=== PATIENT | male | born 1930 | race Caucasian/White ===

== ENCOUNTER 2017-05-20 00:23 | Inpatient (IN) | payer MEDICARE, OTHER ==
[2017-05-20] VITALS (15 sets, daily range): BP systolic 132–182; BP diastolic 63–81; PULSE 64–94; RESP 18–24; TEMP 100; Ht 162.6 cm; Wt 110.0 kg
[~2017-05-20] VITALS: Ht 162.6 cm; Wt 110.0 kg
[~2017-05-20 00:23] MED LIST: ACET500T98; AMI10; ASPI-535; BACL10TA; CARV6.2545 PO; COL250; COLC0.6T6 PO; ESOM40CA; FERR140T2 PO; FLUO30CR; FURO40TA4; GLIM4TAB; HUM10VIA9; HYDR-1666 PO; HYDR-3011; IBUP100O10 PO; INDO75CA3 PO; METO25TA54; METO5TAB2 PO; NAPR220T30 PO; REPA2TAB6; TERA2CAP3; TRIA60LO; VALS1TAB65
--- NOTE | 2017-05-20 00:24 | ERA ---
ER Documentation Chief Complaint Date/Time DATE: 05/20/17 TIME: 00:24 Chief Complaint Altered level of consciousness HPI The patient is a 86-year-old male, presenting to the ER because of altered level of consciousness for 1 week, however it has been worse for the last 12 hours. He is quite confused according to family. This never happened to him previously. His history is not reliable. He denies blurred vision, headache, auditory, visual hallucination, neck pain, chest pain, abdominal pain, vomiting , dysuria, diarrhea. He does not smoke nor drink he walks with a walker Past medical history: Hypertension, diabetes mellitus, anemia, BPH, chronic kidney disease, gout, chronic left lower extremity weakness Past surgical history: Cholecystectomy ROS All systems reviewed and are negative except as per history of present illness. Medications Home Meds Reported Medications Indomethacin (Indomethacin) 75 Mg Capsule.sa, 25 MG PO 06/03/13 Colchicine* (Colcrys*) 0.6 Mg Tablet, 0.6 MG PO TID 06/03/13 Naproxen* (Naproxen*) 220 Mg Tablet, 500 MG PO 06/03/13 Hydrocodone Bit/Acetaminophen (Vicodin 5/500 Tablet) 1 Tab Tablet, 1 TAB PO DAILY 06/03/13 Ibuprofen (Ibuprofen) 100 Mg/5 Ml Oral.susp, 600 MG PO TID 06/03/13 Ferrous Sulfate* (Ferrous Sulfate*) 140 Mg Tablet.er, 325 MG PO DAILY 06/03/13 Metoclopramide Hcl (Reglan) 5 Mg Tab, 5 MG PO 06/03/13 Carvedilol (Coreg) 6.25 Mg Tablet, 3.125 PO DAILY 06/03/13 Amitriptyline Hcl* (Elavil*) 10 Mg Tab 03/21/11 Repaglinide* (Prandin*) 2 Mg Tablet 03/21/11 Aspirin Ec (Aspir 81) 81 Mg Tablet. 03/21/11 Docusate Sodium (Colace) 250 Mg Cap 03/21/11 Esomeprazole Mag Trihydrate (Nexium) 40 Mg Capsule. 03/21/11 Acetaminophen (Tylenol) 500 Mg Tab 03/21/11 Metoprolol Succinate (Toprol Xl) 25 Mg Tab.sr.24h 03/21/11 Furosemide (Lasix) 40 Mg Tab 03/21/11 Terazosin Hcl* (Terazosin Hcl*) 2 Mg Capsule 03/21/11 Valsartan-Hydrochlorothiazide (Diovan HCT) 1 Tab Tablet 03/21/11 Baclofen* (Baclofen*) 10 Mg Tablet 03/21/11 Hydroxyzine Hcl* (Hydroxyzine Hcl*) 25 Mg Tablet 03/21/11 Glimepiride* (Glimepiride*) 4 Mg Tablet 03/21/11 Fluocinonide (Fluocinonide) 30 Gm Cream.gm. 03/21/11 Hum Insulin Nph/Reg Insulin Hm (Novolin 70-30 100 Unit/Ml Vial) 100 Units/Ml Vial 03/21/11 Triamcinolone Acetonide (Triamcinolone Acetonide) 60 Ml Lotion 03/21/11 Allergies Allergies: Coded Allergies: No Known Drug Allergies (Verified Allergy, Mild, 10/15/13) PMhx/Soc History of Surgery: Yes (EGD, colonoscopy) Hx Neurological Disorder: No Hx Respiratory Disorders: No Hx Cardiac Disorders: Yes (HYPERTENSION) Hx Psychiatric Problems: No Hx Miscellaneous Medical Probl: Yes (anemia,gastric ulcer,Htn,DM,BPH,CKD, gout) Hx Alcohol Use: No (UNABLE TO OBTAIN FULL HISTORY PATIENT IS AAOX1) Hx Substance Use: No (UNABLE TO OBTAIN FULL HISTORY PATIENT IS AAOX1) Hx Tobacco Use: No (UNABLE TO OBTAIN FULL HISTORY PATIENT IS AAOX1) Physical Exam Vitals Vital Signs Date Time Temp Pulse Resp B/P Pulse Ox O2 Delivery O2 Flow Rate FiO2 05/20/17 00:49 97.8 67 19 177/73 97 Room Air 05/20/17 00:35 97.9 69 19 157/75 100 Physical Exam Const: No acute distress. Head: Atraumatic. Eyes: Normal Conjunctiva. ENT: Normal External Ears, Nose and Mouth. Neck: Full range of motion. No meningismus. Resp: Clear to auscultation bilaterally. Cardio: Regular rate and rhythm. Abd: Soft, obese, normal bowel sounds, non tender, distended urinary bladder. Skin: No petechiae or rashes. Back: No midline or flank tenderness. Ext: No cyanosis, or edema. Neur: Awake and alert. No focal deficit. Psych: Confused Result Diagram: 05/20/17 0045 05/20/17 0045 Results 24 hrs Laboratory Tests Test 05/20/17 00:45 05/20/17 00:48 05/20/17 00:57 05/20/17 01:35 White Blood Count 8.010^3/ul Red Blood Count 3.2810^6/ul Hemoglobin 9.8g/dl Hematocrit 30.1% Mean Corpuscular Volume 91.8fl Mean Corpuscular Hemoglobin 29.9pg Mean Corpuscular Hemoglobin Concent 32.6g/dl Red Cell Distribution Width 16.3% Platelet Count 78417^3/UL Mean Platelet Volume 12.9fl Neutrophils % 58.6% Lymphocytes % 25.7% Monocytes % 12.7% Eosinophils % 2.0% Basophils % 0.6% Nucleated Red Blood Cells % 0.0/100WBC Neutrophils # 4.710^3/ul Lymphocytes # 2.110^3/ul Monocytes # 1.010^3/ul Eosinophils # 0.210^3/ul Basophils # 0.110^3/ul Nucleated Red Blood Cells # 0.010^3/ul Prothrombin Time 15.7Sec Prothrombin Time Ratio 1.2 INR International Normalized Ratio 1.24 Activated Partial Thromboplast Time 32.6Sec Sodium Level 144mmol/L Potassium Level 4.2mmol/L Chloride Level 103mmol/L Carbon Dioxide Level 24mmol/L Anion Gap 21 Blood Urea Nitrogen 36mg/dl Creatinine 2.26mg/dl Glucose Level 279mg/dl Calcium Level 9.3mg/dl Total Bilirubin 0.5mg/dl Direct Bilirubin 0.00mg/dl Indirect Bilirubin 0.5mg/dl Aspartate Amino Transf (AST/SGOT) 48IU/L Alanine Aminotransferase (ALT/SGPT) 53IU/L Alkaline Phosphatase 121IU/L Troponin I 0.069ng/ml Total Protein 7.0g/dl Albumin 3.6g/dl Globulin 3.40g/dl Albumin/Globulin Ratio 1.05 Thyroid Stimulating Hormone (TSH) Pending Salicylates Level < 1.0mg/dl Acetaminophen Level < 10.0ug/ml Ethyl Alcohol Level < 10.0mg/dl Bedside Glucose 284mg/dL Urine Opiates Screen Positive Urine Barbiturates Negative Urine Amphetamines Screen Negative Urine Benzodiazepines Screen Negative Urine Cocaine Screen Negative Urine Cannabinoids Negative Bedside Urine pH (LAB) 6.0 Bedside Urine Protein (LAB) 1+ Bedside Urine Glucose (UA) 0.25% Bedside Urine Ketones (LAB) Negative Bedside Urine Blood Trace-lysed Bedside Urine Nitrite (LAB) Negative Bedside Urine Leukocyte Esterase (L Negative Procedures/MDM [place] [id number] Radiology Main Line: [phone] DIAGNOSTIC IMAGING REPORT Patient: BRONSON BLANCO : 1930 Age: 86 Sex: M MR #: [id number] DOS: 05/20/17 003 Ordering MD: RONNIE WILCOX MD Location: E/R Room/Bed: PROCEDURE: XR Chest. CLINICAL INDICATION: Altered level of consciousness. TECHNIQUE: Single frontal chest x-ray. COMPARISON: Of that. FINDINGS: Heart is enlarged.. There are atherosclerotic calcifications of the aortic knob. There is mild pulmonary vascular congestion. There is hypoventilation bibasilar atelectasis.. There is no pleural effusion. There is no pneumothorax. The osseous structures are unremarkable. IMPRESSION: Cardiomegaly. Mild pulmonary vascular congestion. Bibasilar atelectasis. RPTAT: HMVK .Ronnie Villalobos MD, MD Date Time Electronically viewed and signed by .Ronnie Villalobos MD, MD on 05/20/2017 01:28 .K/ CC: RONNIE WILCOX MD [place] [id number] Radiology Main Line: [phone] DIAGNOSTIC IMAGING REPORT Patient: BRONSON BLANCO : 1930 Age: 86 Sex: M MR #: [id number] DOS: 05/20/1734 Ordering MD: RONNIE WILCOX MD Location: E/R Room/Bed: PROCEDURE: Noncontrast CT Head. CLINICAL INDICATION: Pain. TECHNIQUE: Noncontrast CT of the head was obtained. The administered radiation dose was CTDI vol = 44 mGy, DLP = 810 mGy-cm. COMPARISON: No pertinent prior examinations were submitted for comparison. FINDINGS: The ventricles and cortical sulci are moderately enlarged. There is moderate decreased attenuation within the periventricular and subcortical white matter compatible with chronic microvascular changes. A small chronic infarct is noted in the region of the left insula. A small chronic right posterior frontal cortical infarct is noted. There is motion artifact which limits the exam. There is no acute intracranial hemorrhage or extra-axial fluid collection. There is no mass effect. No midline shift is identified. There is no loss of arthur-white differentiation to suggest acute infarction. The orbits are within normal limits. The paranasal sinuses are well aerated. No destructive osseous lesion is identified. IMPRESSION: No acute findings. Moderate diffuse parenchymal volume loss and chronic microvascular changes. 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 RPTAT: HIKT .Tom Forbes MD, MD Date Time Electronically viewed and signed by .Tom Forbes MD, MD on 05/20/2017 01:59 .T/ CC: RONNIE WILCOX MD EKG: Read by emergency physician Rate/Rhythm: Normal Sinus Rhythm 68 beats/min QRS, ST, T-waves: No ST elevation, no T inversion, LAD, LVH Impression: Abnormal EKG MEDICAL MAKING DECISION: The patient is a 86-year-old male, presenting with acute encephalopathy of unclear etiology, acute urinary retention. He was treated with Hillman catheter that went on about 800 mL of urine. The differential diagnoses considered include but are not limited to medication dementia, delirium, TIA, CVA, metabolic encephalopathy, septic encephalopathy, UTI, pyelonephritis Departure Diagnosis: Primary Impression: Acute encephalopathy Additional Impressions: Acute urinary retention Anemia Condition: Good Comments I discussed the findings with the patient. I discussed the patient with the on- call hospitalist Dr. Still who was made aware of the lab, the treatment, the patient condition. The patient is admitted to telemetry at 2:10 AM RONNIE WILCOX MD May 20, 2017 00:24
[2017-05-20 01:07] LABS: BASOPHIL # 0.1 10^3/ul (0.0-0.1); BASOPHILS % 0.6 % (0.0-2.0); EOSINOPHILS # 0.2 10^3/ul (0.0-0.5); HEMATOCRIT 30.1 % (42.0-52.0); HEMOGLOBIN 9.8 g/dl (14.0-18.0); LYMPHOCYTES # 2.1 10^3/ul (0.8-2.9); LYMPHOCYTES % 25.7 % (15.0-51.0); MEAN CORPUSCULAR HEMOGLOBIN 29.9 pg (29.0-33.0); MEAN CORPUSCULAR HGB CONC 32.6 g/dl (32.0-37.0); MEAN CORPUSCULAR VOLUME 91.8 fl (82.0-101.0); MEAN PLATELET VOLUME 12.9 fl (7.4-10.4); MONOCYTES % 12.7 % (0.0-11.0); NEUTROPHIL # 4.7 10^3/ul (1.6-7.5); NEUTROPHILS % 58.6 % (39.0-77.0); PLATELET COUNT 183 10^3/UL (140-415); RED BLOOD COUNT 3.28 10^6/ul (4.70-6.10); RED CELL DISTRIBUTION WIDTH 16.3 % (11.5-14.5)
[2017-05-20 01:24] LABS: INR 1.24; PROTIME 15.7 Sec (12.2-14.2); PT RATIO 1.2
[2017-05-20 01:25] LABS: PARTIAL THROMBOPLASTIN TIME 32.6 Sec (25.0-35.0)
[2017-05-20 01:29] LABS: URINE BLOOD (Dip) POC Trace-lysed (NEGATIVE)
--- NOTE | 2017-05-20 01:29 | RADRPT ---
PROCEDURE: XR Chest. CLINICAL INDICATION: Altered level of consciousness. TECHNIQUE: Single frontal chest x-ray. COMPARISON: Of that. FINDINGS: Heart is enlarged.. There are atherosclerotic calcifications of the aortic knob. There is mild pulm onary vascular congestion. There is hypoventilation bibasilar atelectasis.. There is no pleural eff usion. There is no pneumothorax. The osseous structures are unremarkable. IMPRESSION: Cardiomegaly. Mild pulmonary vascular congestion. Bibasilar atelectasis. RPTAT: HMVK .Yang Villalobos MD, Date Time Electronically viewed and signed by .Yang Villalobos MD, MD on 05/20/2017 01:28 .K/
[2017-05-20 01:32] LABS: ALANINE AMINOTRANSFERASE 53 IU/L (13-69); ALBUMIN 3.6 g/dl (3.3-4.9); ALBUMIN/GLOBULIN RATIO 1.05; ALKALINE PHOSPHATASE 121 IU/L (42-121); ANION GAP 21 (8-16); ASPARTATE AMINO TRANSFERASE 48 IU/L (15-46); BILIRUBIN,INDIRECT 0.5 mg/dl (0-1.1); BILIRUBIN,TOTAL 0.5 mg/dl (0.2-1.3); BLOOD UREA NITROGEN 36 mg/dl (7-20); CALCIUM 9.3 mg/dl (8.4-10.2); CARBON DIOXIDE 24 mmol/L (21-31); CHLORIDE 103 mmol/L (97-110); CREATININE 2.26 mg/dl (0.61-1.24); GLUCOSE 279 mg/dl (70-220); POTASSIUM 4.2 mmol/L (3.5-5.1); SODIUM 144 mmol/L (135-144)
[2017-05-20 01:36] LABS: ACETAMINOPHEN < 10.0 ug/ml (10.0-30.0)
[2017-05-20 01:37] LABS: BARBITURATES Negative (NEGATIVE); BENZODIAZEPINES Negative (NEGATIVE); CANNABINOIDS Negative (NEGATIVE); COCAINE Negative (NEGATIVE); OPIATES Positive (NEGATIVE)
[2017-05-20 01:37] LABS: ETHANOL < 10.0 mg/dl; SALICYLATE < 1.0 mg/dl (5.0-30.0)
[2017-05-20 01:43] LABS: TROPONIN-I 0.069 ng/ml (0.00-0.12)
--- NOTE | 2017-05-20 01:59 | RADRPT ---
PROCEDURE: Noncontrast CT Head. CLINICAL INDICATION: Pain. TECHNIQUE: Noncontrast CT of the head was obtained. The administered radiation dose was CTDI vol = 44 mGy, DLP = 810 mGy-cm. COMPARISON: No pertinent prior examinations were submitted for comparison. FINDINGS: The ventricles and cortical sulci are moderately enlarged. There is moderate decreased attenuation within the periventricular and subcortical white matter compatible with chronic microvascular change s. A small chronic infarct is noted in the region of the left insula. A small chronic right posterior frontal cortical infarct is noted. There is motion artifact which limits the exam. There is no acute intracranial hemorrhage or extra-axial fluid collection. There is no mass effect. No midline shift is identified. There is no loss of arthur-white differentiation to suggest acute infa rction. The orbits are within normal limits. The paranasal sinuses are well aerated. No destructive osseous lesion is identified. IMPRESSION: No acute findings. Moderate diffuse parenchymal volume loss and chronic microvascular changes. 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 RPTAT: HIKT .Tom Forbes MD, MD Date Time Electronically viewed and signed by .Tom Forbes MD, MD on 05/20/2017 01:59 .T/
[2017-05-20] MEDS ORDERED: NACL 0.9% 3 ML SYG IV SCH (05:00)
[2017-05-20] MEDS ORDERED: ONDANSETRON 4 MG INJ IV PRN (05:00)
[2017-05-20] MEDS ORDERED: ACETAMINOPHEN 650 MG SUPP PR PRN (05:00)
[2017-05-20] MEDS: SOD CHLORIDE 0.9% 1,000 ML IV SCH ×2 (05:03→21:17)
[2017-05-20] MEDS: PANTOPRAZOLE 40 MG INJ IV SCH (05:06)
[2017-05-20] MEDS: HEPARIN 5,000 UNIT/0.5 ML VIAL SC SCH ×3 (05:08→23:17)
[2017-05-20] MEDS ORDERED: SUCCINYLCHOLINE CHLORIDE 100 MG/5 ML SYG IV ONE (07:00)
[2017-05-20] MEDS ORDERED: ETOMIDATE 20 MG INJ ONE (07:00)
[2017-05-20] MEDS ORDERED: HALOPERIDOL 5 MG INJ IM ONE ×2 (07:00→21:00)
--- NOTE | 2017-05-20 08:30 | HP ---
Date/Time of Note Date/Time of Note DATE: 05/20/17 TIME: 08:13 Assessment/Plan VTE Prophylaxis VTE Prophylaxis Intervention: heparin Lines/Catheters Urinary Cath still in place: Yes Reason Cath still needed: urinary retention Assessment/Plan Chief Complaint/Hosp Course This is an 86-year-old male being admitted to telemetry floor for: #1 encephalopathy: Drug-induced versus infectious versus metabolic. At the current time patient's blood work does not elicit any signs of any infection at this time. Urine drug screen was positive for opioids. Urinalysis negative, however culture ordered. Chest x-ray did not show any signs of pneumonia. I will rasmussen-culture him. Patient will likely need soft restraints. I would like to try to avoid any sedating medications however if the patient does become more confused and tries to get out of bed he may need some as needed Ativan/ Haldol, however we will continue to assess the patient. I will hold his current home medication at this time as patient appears confused and at risk for possible aspiration. I will put him on as needed medications for hypertension and diabetes. #2 hypertension: We will hold on medication at this time, as needed hydralazine for blood pressure greater than 160 systolic. #3 diabetes mellitus: We will hold home medications, insulin sliding scale. #4 anemia: Likely of chronic disease secondary to #6. Will continue to follow #5 BPH -patient did have approximately 5-700 cc of urine that needed to be straight cath, urine however did not show any signs of infection. Need to monitor his bladder scans. #6 chronic kidney disease: Creatinine is 2.2 with the previous one approximately years ago was 1.4. Will continue IV fluid hydration at this time. Will consult nephrology. Nephrotoxic agents. #7 gout: We will check a uric acid level. Hold home medications. #8 DVT and GI prophylaxis: Heparin, Protonix Further treatment strategy will be implemented as per the clinical course Problems: HPI/ROS Admit Date/Time Admit Date/Time May 20, 2017 at 02:37 Hx of Present Illness Chief complaint: Confusion The following records were obtained from the ED physician as when I saw the patient he was confused and unable to provide history. The patient is a 86-year -old male, presenting to the ER because of altered level of consciousness for 1 week, however it has been worse for the last 12 hours. He is quite confused according to family. This never happened to him previously. His history is not reliable. He denies blurred vision, headache, auditory, visual hallucination, neck pain, chest pain, abdominal pain, vomiting, dysuria, diarrhea. He does not smoke nor drink he walks with a walker. Most of patient' s history was obtained from previous ED documentation is available on the EMR. Allergies: NKDA Medications: See MAR ROS Subjective hx not possible: pt non-verbal, pt critical status PMH/Family/Social Past Medical History Hypertension, diabetes mellitus, anemia, BPH, chronic kidney disease, gout, chronic left lower extremity weakness Past Surgical History Past surgical history: Cholecystectomy Family History Significant Family History: no pertinent family hx Social History Unable to obtain secondary to patient's confusion Exam/Review of Systems Vital Signs Vitals Vital Signs Date Time Temp Pulse Resp B/P Pulse Ox O2 Delivery O2 Flow Rate FiO2 05/20/17 06:36 100.0 83 24 165/73 97 Room Air 05/20/17 06:00 2.0 Intake and Output 05/19/17 05/19/17 05/20/17 15:00 23:00 07:00 Output Total 1400 ml Balance -1400 ml Exam Exam General: Patient appears confused, restless in bed HEENT: Atraumatic, normocephalic. The pupils are equal, round and reactive. Extraocular motor are intact Neck: Supple with full range of motion. No rigidity or meningismus Chest: Nontender Lungs: Clear to auscultation bilaterally no crackles rales or wheezing Heart: Normal S1-S2, Regular rhythm and rate. No overt murmurs appreciated Abdomen: Soft , nontender, nondistended , bowel sounds are present. No guarding no rebound tenderness Extremities: Normal to inspection, no edema no cyanosis Neurologic: Confused, awake. He does respond to his name however he is not able to verbalize coherently. Labs Result Diagram: 05/20/175 05/20/1744 Medications Medications Current Medications Sodium Chloride (NS) 1,000 ml @ 80 mls/hr [id number] IV Last administered on 05/20t 05:03; Admin Dose 80 MLS/HR; Start 05/20/17 at 04:36 Ondansetron HCl (Zofran Inj) 4 mg Q6H PRN IV NAUSEA AND/OR VOMITING; Start at 05:00 Acetaminophen (Tylenol Supp) 650 mg Q6H PRN [place] PAIN LEVEL 1-3 OR FEVER Last administered on 05/20/17 07:10; Admin Dose 650 MG; Start 05/20/17 at 05:00 Pantoprazole (Protonix Iv) 40 mg DAILY@06 IV Last administered on 05/20/17 05: 06; Admin Dose 40 MG; Start 05/20/17 at 06:00 Heparin Sodium (Porcine) (Heparin (5000 Units/0.5 ml)) 5,000 unit Q8 SC Last administered on 05/20/17 05:08; Admin Dose 5,000 UNIT; Start 05/20/17 at 06:00 FELIX MOISE May 20, 2017 08:26
[2017-05-20] MEDS: INSULIN ASPART [NOVOLOG] 3 ML PEN SC SCH ×4 (09:00→23:19)
[2017-05-20] MEDS ORDERED: GLUCOSE GEL 15 GRAM TUBE PO PRN ×2 (09:30)
[2017-05-20] MEDS ORDERED: DEXTROSE 50% 50 ML SYRINGE IV PRN ×2 (09:30)
[2017-05-20] MEDS ORDERED: GLUCOSE GEL 15 GRAM TUBE BUCCAL PRN (09:30)
[2017-05-20] MEDS ORDERED: GLUCAGON 1 MG INJ IM PRN (09:30)
[2017-05-20 11:50] LABS: ADD UMIC YES; UR ASCORBIC ACID NEGATIVE (NEGATIVE); UR BILIRUBIN (Dip) NEGATIVE (NEGATIVE); UR BLOOD (Dip) 3+ mg/dL (NEGATIVE); UR CLARITY SLIGHTLY CLOUDY (CLEAR); UR COLOR YELLOW (YELLOW); UR GLUCOSE (Dip) 3+ mg/dL (NEGATIVE); UR KETONES (Dip) NEGATIVE (NEGATIVE); UR LEUKOCYTE ESTERASE (Dip) 1+ Leu/ul (NEGATIVE); UR MUCUS FEW /HPF (NONE SEEN); UR NITRITE (Dip) NEGATIVE (NEGATIVE); UR RBC > 182 /HPF (0-5); UR SPECIFIC GRAVITY (Dip) 1.011 (1.003-1.030); UR TOTAL PROTEIN (Dip) 2+ mg/dl (NEGATIVE); UR UROBILINOGEN (Dip) NEGATIVE (NEGATIVE)
[2017-05-20] MEDS: hydrALAzine 20 MG INJ IV PRN ×2 (11:56→18:01)
[2017-05-20] MEDS ORDERED: HALOPERIDOL 5 MG INJ IV ONE ×2 (13:18→13:30)
--- NOTE | 2017-05-20 14:47 | RADRPT ---
PROCEDURE: Retroperitoneal ultrasound. CLINICAL INDICATION: Acute renal failure TECHNIQUE: Gustafson scale and color doppler ultrasound images of the retroperitoneum, kidneys, urinary bladder COMPARISON: Abdominal ultrasound 10/16/2013, CT abdomen 06/03/1930 FINDINGS: Right kidney 9.9 cm in length. Right renal cortical thickness is preserved. Left kidney 10.0 cm in length. Left renal cortical thickness is preserved. Echogenicity is upper limits of normal. No hydronephrosis. A few small echogenic foci are seen which may represent vascular calcifications, no definite renal c alculi are seen. 5.5 cm cyst again noted in the left kidney. Bladder: No focal lesions. IMPRESSION: Renal echogenicity upper limits of normal. No evidence of hydronephrosis. RPTAT: AADD .Boogie Ivey MD, Date Time Electronically viewed and signed by .Boogie Ivey MD, on 05/20/2017 14:47 .B/
[2017-05-20] MEDS ORDERED: ACETAMINOPHEN 325 MG TAB PO PRN (19:30)
[2017-05-20] MEDS ORDERED: hydrOXYzine HCL 25 MG TAB PO PRN (19:30)
[2017-05-20] MEDS ORDERED: METOCLOPRAMIDE 5 MG TAB PO PRN (19:30)
[2017-05-20] MEDS: AMITRIPTYLINE 10 MG TAB PO SCH (21:00)
[2017-05-20] MEDS: BACLOFEN 10 MG TAB PO SCH (21:00)
[2017-05-20] MEDS ORDERED: COLCHICINE 0.6 MG TAB PO SCH (21:00)
[2017-05-20] MEDS: IBUPROFEN 600 MG TAB PO SCH (21:00)
[2017-05-20] MEDS ORDERED: AMITRIPTYLINE 10 MG TAB PO SCH (21:00)
[2017-05-20] MEDS ORDERED: LORAZEPAM 2 MG INJ IV ONE (21:00)
[2017-05-21] VITALS (39 sets, daily range): BP systolic 81–162; BP diastolic 45–86; PULSE 63–102; RESP 12–32
[2017-05-21 00:13] LABS: AADO2 Arterial 51.4 mmHg (7.0-24.0); Allen Test ACCEPTAB; Arterial Base Excess -5.1 mmol/L (-3.0-3); Arterial COHb 0 % (0.0-3.0); Arterial Fraction of Oxyhgb 91.3 % (93.0-99.0); Arterial HCO3 17.9 mmol/L (22.0-26.0); Arterial MetHb 0.3 % (0.0-1.5); Arterial Total Hemglobin 11.1 g/dl (12.0-18.0); MODE ROOM AIR
[2017-05-21] MEDS: INSULIN ASPART [NOVOLOG] 3 ML PEN SC SCH ×11 (01:00→21:00)
[2017-05-21] MEDS: ACCU-CHEK XX SCH (02:00)
[2017-05-21 02:58] LABS: AADO2 Arterial 96.6 mmHg (7.0-24.0); Allen Test ACCEPTAB; Arterial Base Excess -6.2 mmol/L (-3.0-3); Arterial COHb 0.3 % (0.0-3.0); Arterial Fraction of Oxyhgb 92.4 % (93.0-99.0); Arterial HCO3 16.2 mmol/L (22.0-26.0); Arterial MetHb 0.3 % (0.0-1.5); Arterial Total Hemglobin 11.4 g/dl (12.0-18.0); MODE NASAL CANNULA
[2017-05-21] MEDS ORDERED: LORAZEPAM 2 MG INJ IV ONE (03:30)
[2017-05-21] MEDS ORDERED: HALOPERIDOL 5 MG INJ IM ONE (03:30)
[2017-05-21] MEDS ORDERED: LACTULOSE ENEMA 1,000 ML BTL PR SCH (04:00)
[2017-05-21 04:32] LABS: ABNORMAL IP MESSAGE 1; BASOPHIL # 0.1 10^3/ul (0.0-0.1); BASOPHILS % 0.6 % (0.0-2.0); EOSINOPHILS # 0.1 10^3/ul (0.0-0.5); EOSINOPHILS % 0.5 % (0.0-7.0); HEMATOCRIT 33.4 % (42.0-52.0); HEMOGLOBIN 10.5 g/dl (14.0-18.0); LYMPHOCYTES # 2.5 10^3/ul (0.8-2.9); LYMPHOCYTES % 18.4 % (15.0-51.0); MEAN CORPUSCULAR HEMOGLOBIN 29.7 pg (29.0-33.0); MEAN CORPUSCULAR HGB CONC 31.4 g/dl (32.0-37.0); MEAN CORPUSCULAR VOLUME 94.6 fl (82.0-101.0); MEAN PLATELET VOLUME 13.7 fl (7.4-10.4); MONOCYTE # 1.6 10^3/ul (0.3-0.9); MONOCYTES % 12.1 % (0.0-11.0); NEUTROPHIL # 9.1 10^3/ul (1.6-7.5); NEUTROPHILS % 67.7 % (39.0-77.0); PLATELET COUNT 187 10^3/UL (140-415); POSITIVE DIFF @See below; RED BLOOD COUNT 3.53 10^6/ul (4.70-6.10); RED CELL DISTRIBUTION WIDTH 17.1 % (11.5-14.5); WHITE BLOOD COUNT 13.5 10^3/ul (4.8-10.8)
[2017-05-21] MEDS: SOD CHLORIDE 0.9% 1,000 ML IV SCH ×2 (05:36→20:55)
[2017-05-21] MEDS ORDERED: morphine 4 MG/ML VIAL IV ONE (06:30)
[2017-05-21] MEDS ORDERED: SOD CHLORIDE 0.9% 1,000 ML IV ONE ×2 (06:30→08:43)
[2017-05-21] MEDS: HEPARIN 5,000 UNIT/0.5 ML VIAL SC SCH ×3 (06:43→21:43)
[2017-05-21] MEDS: PANTOPRAZOLE 40 MG INJ IV SCH (06:46)
[2017-05-21] MEDS ORDERED: CEFTRIAXONE 2 GM/50 ML (PMX) 50 ML IVPB SCH (07:00)
--- NOTE | 2017-05-21 07:01 | RADRPT ---
PROCEDURE: XR Chest. CLINICAL INDICATION: Shortness of breath TECHNIQUE: Portable single view of the chest COMPARISON: 10/19/2013 FINDINGS: Reduced lung volumes. Cardiomegaly and ectatic and calcified aorta. Pulmonary vascular congestion with interstitial edema. Possible early alveolar edema of the left lung base. Infectious infiltrat e cannot be excluded. No large effusion. IMPRESSION: Cardiomegaly and atherosclerotic aorta. Reduced lung volumes with probable at least moderate conges tive heart failure. Early left base infectious infiltrate cannot be excluded. RPTAT: HLBE Physician Emilie Date Time Electronically viewed and signed by Alley Godoy Physician on 05/21/2017 07:01 CAITY/
[2017-05-21 07:41] LABS: AADO2 Arterial 134.3 mmHg (7.0-24.0); Arterial Base Excess -6.3 mmol/L (-3.0-3); Arterial COHb 0.3 % (0.0-3.0); Arterial Fraction of Oxyhgb 89.4 % (93.0-99.0); Arterial HCO3 17.8 mmol/L (22.0-26.0); Arterial MetHb 0.3 % (0.0-1.5); MODE NASAL CANNULA
--- NOTE | 2017-05-21 07:56 | CONS ---
DATE OF ADMISSION: 05/20/2017 DATE OF CONSULTATION: 05/20/2017 NEPHROLOGY CONSULT REASON FOR CONSULT: Acute kidney injury, chronic kidney disease. REFERRING PHYSICIAN: Matty Still MD HISTORY OF PRESENT ILLNESS: This is an 86-year-old male with a past medical history of chronic kidney disease stage IIIB/4, with previous baseline creatinine is ranging from 1.5 to 2.3 mg/dL, a history of diabetes and hypertension, and BPH who presents to [facility] with altered mental status. The patient was brought into emergency room due to worsening stated by family. The patient upon arrival, denies any neck pain, chest pain, abdominal pain, dizzy, and no dysuria. In the emergency room the patient had a CT scan of the brain which showed no acute findings. The patient also noted to have a distended bladder. Had a Hillman catheter placed. In terms of the patient's renal history, the patient has a previous baseline creatinine of 1.5 to 2.3 mg/dL. The patient is taking diuretic therapy at home. There was no reports of any NSAID use. No reports of any hemoptysis, hematemesis, hematochezia, any rashes or frothy urine. PAST MEDICAL HISTORY: As stated above. 1. History of CKD. 2. History of diabetes. 3. History of hypertension. 4. History of anemia. 5. History of BPH. PAST SURGICAL HISTORY: Cholecystectomy. SOCIAL HISTORY: Does not drink, smoke, or do drugs. MEDICATION: Patient's medications have been reviewed. REVIEW OF SYSTEMS: Unable to do an adequate review of systems. This patient is altered. Pertinent positives stated in HPI, as obtained by reviewing medical records, speaking to hospital staff. PHYSICAL EXAMINATION: VITAL SIGNS: Blood pressure 166/74, respirations 20, pulse 75, temperature 98.2. HEENT: Head is normocephalic. Pupils are reactive to light. NECK: Supple. HEART: Regular rate. LUNGS: Diminished breath sounds at the base. ABDOMEN: Soft, nontender to palpation. No rebound or guarding. EXTREMITIES: Negative for clubbing, cyanosis, no edema. DERMATOLOGIC: No rashes. MUSCULOSKELETAL: No joint effusion. NEUROLOGIC: No change in exam. LABORATORY: Have been reviewed. ASSESSMENT AND PLAN: This is an 86-year-old male who presents with: 1. Nonoliguric acute kidney injury on top of chronic kidney disease stage IIIB/4, with previous baseline creatinine of 1.5 to 2.3 mg/dL. Etiology of current acute kidney injury may be secondary to hemodynamics. Questionable tubular injury. The patient's urinalysis shows evidence of pyuria and hematuria. This may be secondary to urinary tract infection in conjunction with Hillman trauma. The patient does have proteinuria approximately 2 creatinine. Plan at this point is to check a renal ultrasound to evaluate renal parenchyma and rule out obstruction. Will repeat urinalysis and urine electrolytes. Would recommend to continue gentle IV hydration. Continue treating underlying urinary tract infection. Otherwise continue supportive care, renally dose all meds. Avoid nephrotoxins. 2. History of chronic kidney injury, likely due to underlying diabetes and hypertension. The patient has currently in acute kidney injury as stated above. Continue medical management. 3. Anemia monitor H and H levels. 4. Mineral bone disorder. Will monitor calcium and phosphorus levels. 5. Acute encephalopathy. Etiology unclear if this is due to infectious versus toxic metabolic versus questionable cerebrovascular accident. The patient's initial CT scan was negative. Plan is to continue current medical management. Consider MRI. 6. Diabetes. Continue Accu-Chek and sliding scale. 7. Hypertension. Continue current blood pressure regimen. 8. Benign prostatic hypertrophy. Continue medical management. 9. Possible urinary tract infection. The patient's urinalysis shows underlying pyuria. Would recommend to consider antibiotic therapy. Thank you, Dr. Still, for this interesting consult. It will be a pleasure to follow the patient with you throughout the hospital course. Dictated By: Jl Pizano DO /vincent/froy /Document#: [id number]
--- NOTE | 2017-05-21 08:50 | EN ---
Date/Time of Note Date/Time of Note DATE: 05/21/17 TIME: 08:47 ER Progress Note This 86-year-old male admitted for presumed sepsis is in the ICU. I was called to intubate the patient due to respiratory difficulty and decreasing oxygen saturations of 92%. On arrival the patient is using accessory muscles of breathing is altered mental status. Oxygen saturations are 92-100% Endotracheal Intubation by me: Pre assessment performed. See preceding note for details. Pre-oxygenation performed with 100% oxygen RSI: Performed w/o complication or hypoxic events. Medications as ordered. Blade: [Mac 4] ET Tube: 7.5] cm Depth: 23] cm at the lip Intubation confirmed by colorimetric CO2, equal breath sounds, quiet over the stomach. SCOOTER SOLORZANO DO May 21, 2017 08:50
[2017-05-21] MEDS ORDERED: PROPOFOL 100 ML ONE (08:59)
[2017-05-21] MEDS: FERROUS SULFATE (SR) 142 MG TAB PO SCH (09:00)
[2017-05-21] MEDS: BACLOFEN 10 MG TAB PO SCH ×3 (09:00→21:00)
[2017-05-21] MEDS: ASPIRIN (EC) 81 MG TAB PO SCH (09:00)
[2017-05-21] MEDS ORDERED: FUROSEMIDE 40 MG TAB PO SCH (09:00)
[2017-05-21] MEDS: DOCUSATE SODIUM 250 MG CAP PO SCH (09:00)
[2017-05-21] MEDS: IBUPROFEN 600 MG TAB PO SCH ×2 (09:00→13:00)
[2017-05-21] MEDS: TERAZOSIN 2 MG CAP PO SCH (09:00)
[2017-05-21] MEDS: PROPOFOL 100 ML IV SCH ×3 (09:30→18:58)
--- NOTE | 2017-05-21 09:35 | RADRPT ---
PROCEDURE: XR Chest 1 view. CLINICAL INDICATION: Shortness of breath, status post intubation. TECHNIQUE: AP views of the chest was obtained. COMPARISON: May 21, 2017 FINDINGS: The heart is large. Calcified atherosclerosis is noted in the aorta. Endotracheal tube has its tip approximately 4.0 cm above the makeda. Central pulmonary vascular congestion and interstitial promi nence in both lungs is unchanged. Bilateral perihilar and lower lung infiltrates, combined with sma ll pleural effusions are stable. The osseous structures are unchanged. IMPRESSION: Cardiomegaly with calcified atherosclerosis in the aorta. Endotracheal tube with its tip approximately 4.0 cm above the makeda. Stable central pulmonary vascular congestion and mild interstitial prominence in both lungs. Stable bilateral perihilar and lower lung infiltrates, combined with small pleural effusions. RPTAT: AA .Ernesto Sun MD, Date Time Electronically viewed and signed by .Ernesto Sun MD, on 05/21/2017 09:34 .P/
[2017-05-21 10:14] LABS: ADD UMIC YES; UR ASCORBIC ACID NEGATIVE (NEGATIVE); UR BACTERIA FEW /HPF (NONE SEEN); UR BILIRUBIN (Dip) NEGATIVE (NEGATIVE); UR BLOOD (Dip) 3+ mg/dL (NEGATIVE); UR CLARITY CLOUDY (CLEAR); UR COLOR YELLOW (YELLOW); UR GLUCOSE (Dip) 3+ mg/dL (NEGATIVE); UR KETONES (Dip) TRACE mg/dL (NEGATIVE); UR LEUKOCYTE ESTERASE (Dip) 1+ Leu/ul (NEGATIVE); UR MUCUS FEW /HPF (NONE SEEN); UR NITRITE (Dip) NEGATIVE (NEGATIVE); UR RBC > 182 /HPF (0-5); UR SPECIFIC GRAVITY (Dip) 1.018 (1.003-1.030); UR SQUAMOUS EPITHELIAL CELL FEW /HPF (FEW); UR TOTAL PROTEIN (Dip) 2+ mg/dl (NEGATIVE); UR UROBILINOGEN (Dip) NEGATIVE (NEGATIVE)
--- NOTE | 2017-05-21 11:06 | CONS ---
Date/Time of Note Date/Time of Note DATE: 05/21/17 TIME: 11:00 Assessment/Plan Assessment/Plan Additional Assessment/Plan Chest x-ray was reviewed done a short while ago which is showing endotracheal tube at an adequate level, patchy bilateral alveolar infiltrates are present. Urinalysis is grossly positive for UTI. Current ventilator setting; AC of 14, tidal volume 500, PEEP of 0, 100% FiO2. The patient on propofol at 15 mics per kilogram per minute just started. Assessment recommendations; next 1. Patient admitted with severe sepsis from UTI possibly superimposed pneumonia. 2. Underlying other comorbidities including diabetes, BPH, hypertension. Discontinue Rocephin. Start the patient on cefepime and vancomycin. Obtain post intubation ABG. Once ABGs done I will review it and make further recommendations. Consultation Date/Type/Reason Admit Date/Time May 20, 2017 at 02:37 Date of Consultation: May 21, 2017 Type of Consultation: Pulmonary/critical care Reason for Consultation Pulmonary consultation requested for evaluation of respiratory failure. History of presenting any; patient is a 86-year-old white male who was brought into the emergency room with altered mental status. The patient was diagnosed with severe UTI and sepsis. Short while ago the patient decompensated on the medical floor requiring intubation. However no CPR was done. By the time I saw the patient denies the patient is orally intubated on mechanical ventilation and somewhat responsive. History was obtained from medical records. Past medical history; 1. Patient with a history of BPH, 2. Hypertension 3. Diabetes. 4. Gout. Medications; reviewed. Allergies; none. Social history; not available. Family history; occupational history is not available. Review of systems; currently unobtainable. General exam; elderly male, orally intubated, semi-responsive. Currently in no distress. Exam/Review of Systems Vital Signs Vitals Vital Signs Date Time Temp Pulse Resp B/P Pulse Ox O2 Delivery O2 Flow Rate FiO2 05/21/17 08:30 91 05/21/17 05:00 98.0 28 142/76 98 Nasal Cannula 4.0 Intake and Output 05/20/17 05/20/17 05/21/17 15:00 23:00 07:00 Intake Total 800 ml Output Total 700 ml 600 ml Balance 100 ml -600 ml Exam HEENT exam; supple neck, no JVD. No lymphadenopathy. Midline trachea. No thyromegaly. Orally intubated. Patient is edentulous. Pupils are equal and reactive to light. Chest exam; diminished breath sounds bilaterally. S1-S2 audible, no murmurs. Regular rhythm. Abdomen exam; soft, no organomegaly. Bowel sounds audible. Extremity exam; no peripheral edema. [employer] exam; patient currently is not much responsive. Results Result Diagram: 05/21/17 0320 05/20/17 0045 Results 24 hrs Laboratory Tests Test 05/20/17 11:24 05/20/17 17:34 05/20/17 19:56 05/20/17 20:32 Bedside Glucose 283 H 253 H 249 H Ammonia 60 H Test 05/20/17 23:14 05/21/17 00:00 05/21/17 02:30 05/21/17 02:41 Bedside Glucose 253 H 263 H Blood Gas Specimen Source Blood arterial Blood arterial Arterial Blood Date Drawn 05/20/2017 11:50:48 PM 05/21/2017 2:53:39 AM Arterial Blood pH (Temp corrected) 7.435 7.450 Arterial Blood pCO2 (Temp correct) 27.3 L 23.8 L Arterial Blood pO2 (Temp corrected) 65.6 L 67.8 L Arterial Blood HCO3 17.9 L 16.2 L Arterial Blood Base Excess -5.1 L -6.2 L Arterial Blood Oxygen Saturation 91.6 L 93.0 L Kevin Test ACCEPTAB ACCEPTAB Arterial Blood Gas Puncture Site Left Radial Left Radial Arterial Blood Carboxyhemoglobin 0 0.3 Arterial Blood Methemoglobin 0.3 0.3 Blood Gas A-a O2 Differential 51.4 H 96.6 H Oxyhemoglobin Percent 91.3 L 92.4 L Total Hemoglobin 11.1 L 11.4 L Blood Gas Temperature 37.0 37.0 Blood Gas Modality ROOM AIR NASAL CANNULA FiO2 21.0 27.0 Blood Gas Notified Whom KATERIN CABALLERO Blood Gas Notified Time 05/21/2017 12:12:45 AM 05/21/2017 2:58:18 AM Test 05/21/17 03:20 05/21/17 06:37 05/21/17 07:17 05/21/17 07:30 White Blood Count 13.5 #H Red Blood Count 3.53 L Hemoglobin 10.5 L Hematocrit 33.4 L Mean Corpuscular Volume 94.6 Mean Corpuscular Hemoglobin 29.7 Mean Corpuscular Hemoglobin Concent 31.4 L Red Cell Distribution Width 17.1 H Platelet Count 187 Mean Platelet Volume 13.7 H Neutrophils % 67.7 Lymphocytes % 18.4 Monocytes % 12.1 H Eosinophils % 0.5 Basophils % 0.6 Nucleated Red Blood Cells % 0.0 Neutrophils # 9.1 H Lymphocytes # 2.5 Monocytes # 1.6 H Eosinophils # 0.1 Basophils # 0.1 Nucleated Red Blood Cells # 0.0 Lactic Acid Level 4.4 *H Phosphorus Level 3.9 Bedside Glucose 267 H Blood Gas Specimen Source Blood arterial Arterial Blood Date Drawn 05/21/2017 7:33:10 AM Arterial Blood pH (Temp corrected) 7.378 Arterial Blood pCO2 (Temp correct) 31.0 L Arterial Blood pO2 (Temp corrected) 64.8 L Arterial Blood HCO3 17.8 L Arterial Blood Base Excess -6.3 L Arterial Blood Oxygen Saturation 89.9 L Kevin Test N/A Arterial Blood Gas Puncture Site Right Brachial Arterial Blood Carboxyhemoglobin 0.3 Arterial Blood Methemoglobin 0.3 Blood Gas A-a O2 Differential 134.3 H Oxyhemoglobin Percent 89.4 L Total Hemoglobin 11.0 L Blood Gas Temperature 37.0 Blood Gas Modality NASAL CANNULA FiO2 33.0 Blood Gas Notified Whom M.D. Blood Gas Notified Time 05/21/2017 7:41:43 AM Urine Color YELLOW Urine Clarity CLOUDY A Urine pH 5.0 Urine Specific [place] 1.018 Urine Ketones TRACE A Urine Nitrite NEGATIVE Urine Bilirubin NEGATIVE Urine Urobilinogen NEGATIVE Urine Leukocyte Esterase 1+ H Urine Microscopic RBC > 182 H Urine Microscopic WBC 70 H Urine Squamous Epithelial Cells FEW Urine Bacteria FEW A Urine Mucus FEW A Urine Hemoglobin 3+ H Urine Glucose 3+ H Urine Total Protein 2+ H Test 05/21/17 09:25 Bedside Glucose 281 H Medications Medications Current Medications Sodium Chloride (NS) 1,000 ml @ 80 mls/hr [id number] IV Last administered on 05/20 21:17; Admin Dose 80 MLS/HR; Start 05/20/17 at 04:36 Ondansetron HCl (Zofran Inj) 4 mg Q6H PRN IV NAUSEA AND/OR VOMITING; Start at 05:00 Acetaminophen (Tylenol Supp) 650 mg Q6H PRN [place] PAIN LEVEL 1-3 OR FEVER Last administered on 05/20/17 07:10; Admin Dose 650 MG; Start 05/20/17 at 05:00 Pantoprazole (Protonix Iv) 40 mg DAILY@06 IV Last administered on 05/21/17 06: 46; Admin Dose 40 MG; Start 05/20/17 at 06:00 Heparin Sodium (Porcine) (Heparin (5000 Units/0.5 ml)) 5,000 unit Q8 SC Last administered on 05/21/17 06:43; Admin Dose 5,000 UNIT; Start 05/20/17 at 06:00 Diagnostic Test (Pha) (Accu-Chek) 1 ea 02 XX ; Start 05/21/17 at 02:00 Insulin Aspart (Novolog Insulin Pen) NOVOLOG *MILD* ALGORI... Q4 SC Last administered on 05/21/17 09:43; Admin Dose 4 UNIT; Start 05/20/17 at 09:00 Hydralazine HCl (Apresoline) 10 mg Q6H PRN IV ELEVATED BLOOD PRESSURE Last administered on 05/20/17 18:01; Admin Dose 10 MG; Start 05/20/17 at 08:30 Miscellaneous Information 1 ea NOTE XX ; Start 05/20/17 at 09:30 Glucose (Glutose) 15 gm Q15M PRN PO DECREASED GLUCOSE; Start 05/20/17 at 09:30 Glucose (Glutose) 22.5 gm Q15M PRN PO DECREASED GLUCOSE; Start 05/20/17 at 09: 30 Dextrose (D50w Syringe) 25 ml Q15M PRN IV DECREASED GLUCOSE; Start 05/20/17 at 09:30 Dextrose (D50w Syringe) 50 ml Q15M PRN IV DECREASED GLUCOSE; Start 05/20/17 at 09:30 Glucagon (Glucagen) 1 mg Q15M PRN IM DECREASED GLUCOSE; Start 05/20/17 at 09:30 Glucose (Glutose) 15 gm Q15M PRN BUCCAL DECREASED GLUCOSE; Start 05/20/17 at 09 :30 Acetaminophen (Tylenol Tab) 325 mg Q4H PRN PO pain; Start 05/20/17 at 19:30 Aspirin (Halfprin) 81 mg DAILY PO ; Start 05/21/17 at 09:00 Baclofen (Lioresal) 10 mg TID PO ; Start 05/20/17 at 21:00 Carvedilol (Coreg) 3.125 mg BID PO ; Start 05/20/17 at 21:00 Colchicine (Colchicine) 0.6 mg TID PO ; Start 05/20/17 at 21:00; Status UNV Docusate Sodium (Colace) 100 mg DAILY PO ; Start 05/21/17 at 09:00 Ferrous Sulfate (Slow Fe) 282 mg DAILY PO ; Start 05/21/17 at 09:00 Furosemide (Lasix) 40 mg DAILY PO ; Start 05/21/17 at 09:00 Hydroxyzine HCl (Atarax) 25 mg Q6H PRN PO agitation; Start 05/20/17 at 19:30 Ibuprofen (Motrin) 600 mg TID PO ; Start 05/20/17 at 21:00 Metoclopramide HCl (Reglan) 5 mg Q8H PRN PO nausea; Start 05/20/17 at 19:30 Terazosin HCl (Hytrin) 2 mg DAILY PO ; Start 05/21/17 at 09:00 Amitriptyline HCl 10 mg 10 mg QHS PO ; Start 05/20/17 at 21:00 Ceftriaxone Sodium (Rocephin) 50 ml @ 100 mls/hr Q24H IVPB Last administered on 05/21/17t 07:45; Admin Dose 100 MLS/HR; Start 05/21/17 at 07:00 Lactulose 100 ml 100 ml Q8H [place] ; Start 05/21/17 at 12:00 Propofol (Diprivan) 100 ml @ 3.3 mls/hr Q12H IV ; Start 05/21/17 at 09:30 Diagnostic Test (Pha) (Accu-Chek) 1 ea 02 XX ; Start 05/22/17 at 02:00 Insulin Glargine (Lantus) 17 unit DAILY@08 SC ; Start 05/22/17 at 08:00 Insulin Aspart (Novolog Insulin Pen) NOVOLOG *MILD* ALGORI... Q4 SC ; Start at 13:00 ART ESTEVEZ May 21, 2017 11:06
[2017-05-21] MEDS ORDERED: VANCOMYCIN IV PER PHARMACY XX SCH (11:30)
[2017-05-21] MEDS ORDERED: CEFEPIME 1GM/50 ML (PMX) 50 ML IVPB SCH (12:00)
--- NOTE | 2017-05-21 12:01 | CONS ---
Date/Time of Note Date/Time of Note DATE: 05/21/17 TIME: 11:54 Assessment/Plan Assessment/Plan Chief Complaint/Hosp Course 86 yo male admitted with delirium, urosepsis with respiratory failure overnight requiring intubation. Plan: Reviewed prior head CT suspect encephalopathy secondary to urosepsis will obtain MRI Brain w/o contrast to rule out possibility of acute ischemic injury discussed plan with family members at bedside, will follow up again tomorrow Problems: Consultation Date/Type/Reason Admit Date/Time May 20, 2017 at 02:37 Date of Consultation: May 21, 2017 Type of Consultation: Neurology Reason for Consultation encephalopathy Referring Provider: FELIX MOISE Hx of Present Illness 86 year old male history of BPH, HTN, DM, Gout admitted with AMS ongoing for the past week with acute worsening admitted with Urosepsis, decompensated overnight with desaturation requiring intubation. He is currently on propofol drip, being managed on cefepime and vancomycin. Per family he has no history of known strokes, this past week he was reciting names of relatives, unable to recognize his and exhibiting signs of delirium. Overnight was given Haldol and ativan due to agitation while in the hospital. 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 Chronic changes. Exam/Review of Systems Vital Signs Vitals Vital Signs Date Time Temp Pulse Resp B/P Pulse Ox O2 Delivery O2 Flow Rate FiO2 05/21/17 08:30 91 05/21/17 05:00 98.0 28 142/76 98 Nasal Cannula 4.0 Intake and Output 05/20/17 05/20/17 05/21/17 15:00 23:00 07:00 Intake Total 800 ml Output Total 700 ml 600 ml Balance 100 ml -600 ml Exam intubated on sedation on propofol drip limited exam CN: EMELIA 2 mm can Doll's, no facial asymmetry corneals and gag present Motor: brief withdrawal to noxious Results Result Diagram: 05/21/17 0320 05/20/17 0045 Results 24 hrs Laboratory Tests Test 05/20/17 17:34 05/20/17 19:56 05/20/17 20:32 05/20/17 23:14 Bedside Glucose 253 H 249 H 253 H Ammonia 60 H Test 05/21/17 00:00 05/21/17 02:30 05/21/17 02:41 05/21/17 03:20 Blood Gas Specimen Source Blood arterial Blood arterial Arterial Blood Date Drawn 05/20/2017 11:50:48 PM 05/21/2017 2:53:39 AM Arterial Blood pH (Temp corrected) 7.435 7.450 Arterial Blood pCO2 (Temp correct) 27.3 L 23.8 L Arterial Blood pO2 (Temp corrected) 65.6 L 67.8 L Arterial Blood HCO3 17.9 L 16.2 L Arterial Blood Base Excess -5.1 L -6.2 L Arterial Blood Oxygen Saturation 91.6 L 93.0 L Keivn Test ACCEPTAB ACCEPTAB Arterial Blood Gas Puncture Site Left Radial Left Radial Arterial Blood Carboxyhemoglobin 0 0.3 Arterial Blood Methemoglobin 0.3 0.3 Blood Gas A-a O2 Differential 51.4 H 96.6 H Oxyhemoglobin Percent 91.3 L 92.4 L Total Hemoglobin 11.1 L 11.4 L Blood Gas Temperature 37.0 37.0 Blood Gas Modality ROOM AIR NASAL CANNULA FiO2 21.0 27.0 Blood Gas Notified Whom KATERIN CABALLERO Blood Gas Notified Time 05/21/2017 12:12:45 AM 05/21/2017 2:58:18 AM Bedside Glucose 263 H White Blood Count 13.5 #H Red Blood Count 3.53 L Hemoglobin 10.5 L Hematocrit 33.4 L Mean Corpuscular Volume 94.6 Mean Corpuscular Hemoglobin 29.7 Mean Corpuscular Hemoglobin Concent 31.4 L Red Cell Distribution Width 17.1 H Platelet Count 187 Mean Platelet Volume 13.7 H Neutrophils % 67.7 Lymphocytes % 18.4 Monocytes % 12.1 H Eosinophils % 0.5 Basophils % 0.6 Nucleated Red Blood Cells % 0.0 Neutrophils # 9.1 H Lymphocytes # 2.5 Monocytes # 1.6 H Eosinophils # 0.1 Basophils # 0.1 Nucleated Red Blood Cells # 0.0 Lactic Acid Level 4.4 *H Phosphorus Level 3.9 Test 05/21/17 06:37 05/21/17 07:17 05/21/17 07:30 05/21/17 09:25 Bedside Glucose 267 H 281 H Blood Gas Specimen Source Blood arterial Arterial Blood Date Drawn 05/21/2017 7:33:10 AM Arterial Blood pH (Temp corrected) 7.378 Arterial Blood pCO2 (Temp correct) 31.0 L Arterial Blood pO2 (Temp corrected) 64.8 L Arterial Blood HCO3 17.8 L Arterial Blood Base Excess -6.3 L Arterial Blood Oxygen Saturation 89.9 L Kevin Test N/A Arterial Blood Gas Puncture Site Right Brachial Arterial Blood Carboxyhemoglobin 0.3 Arterial Blood Methemoglobin 0.3 Blood Gas A-a O2 Differential 134.3 H Oxyhemoglobin Percent 89.4 L Total Hemoglobin 11.0 L Blood Gas Temperature 37.0 Blood Gas Modality NASAL CANNULA FiO2 33.0 Blood Gas Notified Whom M.D. Blood Gas Notified Time 05/21/2017 7:41:43 AM Urine Color YELLOW Urine Clarity CLOUDY A Urine pH 5.0 Urine Specific [place] 1.018 Urine Ketones TRACE A Urine Nitrite NEGATIVE Urine Bilirubin NEGATIVE Urine Urobilinogen NEGATIVE Urine Leukocyte Esterase 1+ H Urine Microscopic RBC > 182 H Urine Microscopic WBC 70 H Urine Squamous Epithelial Cells FEW Urine Bacteria FEW A Urine Mucus FEW A Urine Hemoglobin 3+ H Urine Glucose 3+ H Urine Total Protein 2+ H Medications Medications Current Medications Sodium Chloride (NS) 1,000 ml @ 80 mls/hr [id number] IV Last administered on 05/20 21:17; Admin Dose 80 MLS/HR; Start 05/20/17 at 04:36 Ondansetron HCl (Zofran Inj) 4 mg Q6H PRN IV NAUSEA AND/OR VOMITING; Start at 05:00 Acetaminophen (Tylenol Supp) 650 mg Q6H PRN [place] PAIN LEVEL 1-3 OR FEVER Last administered on 05/20/17 07:10; Admin Dose 650 MG; Start 05/20/17 at 05:00 Pantoprazole (Protonix Iv) 40 mg DAILY@06 IV Last administered on 05/21/17 06: 46; Admin Dose 40 MG; Start 05/20/17 at 06:00 Heparin Sodium (Porcine) (Heparin (5000 Units/0.5 ml)) 5,000 unit Q8 SC Last administered on 05/21/17 06:43; Admin Dose 5,000 UNIT; Start 05/20/17 at 06:00 Diagnostic Test (Pha) (Accu-Chek) 1 ea 02 XX ; Start 05/21/17 at 02:00 Insulin Aspart (Novolog Insulin Pen) NOVOLOG *MILD* ALGORI... Q4 SC Last administered on 05/21/17 09:43; Admin Dose 4 UNIT; Start 05/20/17 at 09:00 Hydralazine HCl (Apresoline) 10 mg Q6H PRN IV ELEVATED BLOOD PRESSURE Last administered on 05/20/17 18:01; Admin Dose 10 MG; Start 05/20/17 at 08:30 Miscellaneous Information 1 ea NOTE XX ; Start 05/20/17 at 09:30 Glucose (Glutose) 15 gm Q15M PRN PO DECREASED GLUCOSE; Start 05/20/17 at 09:30 Glucose (Glutose) 22.5 gm Q15M PRN PO DECREASED GLUCOSE; Start 05/20/17 at 09: 30 Dextrose (D50w Syringe) 25 ml Q15M PRN IV DECREASED GLUCOSE; Start 05/20/17 at 09:30 Dextrose (D50w Syringe) 50 ml Q15M PRN IV DECREASED GLUCOSE; Start 05/20/17 at 09:30 Glucagon (Glucagen) 1 mg Q15M PRN IM DECREASED GLUCOSE; Start 05/20/17 at 09:30 Glucose (Glutose) 15 gm Q15M PRN BUCCAL DECREASED GLUCOSE; Start 05/20/17 at 09 :30 Acetaminophen (Tylenol Tab) 325 mg Q4H PRN PO pain; Start 05/20/17 at 19:30 Aspirin (Halfprin) 81 mg DAILY PO ; Start 05/21/17 at 09:00 Baclofen (Lioresal) 10 mg TID PO ; Start 05/20/17 at 21:00 Carvedilol (Coreg) 3.125 mg BID PO ; Start 05/20/17 at 21:00 Colchicine (Colchicine) 0.6 mg TID PO ; Start 05/20/17 at 21:00; Status UNV Docusate Sodium (Colace) 100 mg DAILY PO ; Start 05/21/17 at 09:00 Ferrous Sulfate (Slow Fe) 282 mg DAILY PO ; Start 05/21/17 at 09:00 Furosemide (Lasix) 40 mg DAILY PO ; Start 05/21/17 at 09:00 Hydroxyzine HCl (Atarax) 25 mg Q6H PRN PO agitation; Start 05/20/17 at 19:30 Ibuprofen (Motrin) 600 mg TID PO ; Start 05/20/17 at 21:00 Metoclopramide HCl (Reglan) 5 mg Q8H PRN PO nausea; Start 05/20/17 at 19:30 Terazosin HCl (Hytrin) 2 mg DAILY PO ; Start 05/21/17 at 09:00 Amitriptyline HCl (Elavil) 10 mg QHS PO ; Start 05/20/17 at 21:00 Lactulose 100 ml 100 ml Q8H [place] ; Start 05/21/17 at 12:00 Propofol (Diprivan) 100 ml @ 3.3 mls/hr Q12H IV ; Start 05/21/17 at 09:30 Diagnostic Test (Pha) (Accu-Chek) 1 XX ; Start 05/22/17 at 02:00 Insulin Glargine (Lantus) 17 unit DAILY@08 SC ; Start 05/22/17 at 08:00 Insulin Aspart NOVOLOG *MILD* ALGORI... Q4 SC ; Start 05/21/17 at 13:00 Cefepime HCl 50 ml @ 100 mls/hr Q24H IVPB ; Start 05/21/17 at 12:00 Vancomycin HCl 2 gm/Sodium Chloride 500 ml @ 125 mls/hr ONCE@14 IVPB ; Start at 14:00; Stop 05/21/17 at 21:00 Vancomycin HCl/ Sodium Chloride (Vancocin/NS) 250 ml @ 83.333 mls/ hr Q48H IVPB ; Start 05/23/17 at 13:00 FUAD CABRALES MD May 21, 2017 12:01
[2017-05-21 12:45] LABS: AADO2 Arterial 614.3 mmHg (7.0-24.0); Allen Test ACCEPTAB; Arterial Base Excess -6.5 mmol/L (-3.0-3); Arterial COHb 0.2 % (0.0-3.0); Arterial Fraction of Oxyhgb 90.4 % (93.0-99.0); Arterial HCO3 18.2 mmol/L (22.0-26.0); Arterial MetHb 0.3 % (0.0-1.5); Arterial Total Hemglobin 9.5 g/dl (12.0-18.0); MODE VENT - AC
[2017-05-21] MEDS ORDERED: VANCOMYCIN 2 GM in SOD CHLORIDE 0.9% 500 ML IVPB SCH (14:00)
--- NOTE | 2017-05-21 14:09 | PN ---
Date/Time of Note Date/Time of Note DATE: 05/21/17 TIME: 14:08 Assessment/Plan VTE Prophylaxis VTE Prophylaxis Intervention: other Lines/Catheters IV Catheter Type (from Nrsg): Peripheral IV Urinary Cath still in place: Yes Reason Cath still needed: skin wounds contaminated by urine Assessment/Plan Chief Complaint/Hosp Course 1) UTI/sepsis - intravenous antibiotics 2) respiratory failure - on ventilator - monitor, wean as able 3) diabetes - monitor blood sugar Problems: Subjective 24 Hr Interval Summary Free Text/Dictation Patient continues to be on ventilator, confused Exam/Review of Systems Vital Signs Vitals Vital Signs Date Time Temp Pulse Resp B/P Pulse Ox O2 Delivery O2 Flow Rate FiO2 05/21/17 12:00 75 05/21/17 05:00 98.0 28 142/76 98 Nasal Cannula 4.0 Intake and Output 05/20/17 05/20/17 05/21/17 15:00 23:00 07:00 Intake Total 800 ml Output Total 700 ml 600 ml Balance 100 ml -600 ml Exam Constitutional: well developed Head: atraumatic, normocephalic Neck: supple Respiratory: diminished breath sounds Cardiovascular: regular rate and rhythm Gastrointestinal: non-tender, soft Results Result Diagram: 05/21/17 0320 05/20/17 0045 Results 24 hrs Laboratory Tests Test 05/20/17 17:34 05/20/17 19:56 05/20/17 20:32 05/20/17 23:14 Bedside Glucose 253 H 249 H 253 H Ammonia 60 H Test 05/21/17 00:00 05/21/17 02:30 05/21/17 02:41 05/21/17 03:20 Blood Gas Specimen Source Blood arterial Blood arterial Arterial Blood Date Drawn 05/20/2017 11:50:48 PM 05/21/2017 2:53:39 AM Arterial Blood pH (Temp corrected) 7.435 7.450 Arterial Blood pCO2 (Temp correct) 27.3 L 23.8 L Arterial Blood pO2 (Temp corrected) 65.6 L 67.8 L Arterial Blood HCO3 17.9 L 16.2 L Arterial Blood Base Excess -5.1 L -6.2 L Arterial Blood Oxygen Saturation 91.6 L 93.0 L Kevin Test ACCEPTAB ACCEPTAB Arterial Blood Gas Puncture Site Left Radial Left Radial Arterial Blood Carboxyhemoglobin 0 0.3 Arterial Blood Methemoglobin 0.3 0.3 Blood Gas A-a O2 Differential 51.4 H 96.6 H Oxyhemoglobin Percent 91.3 L 92.4 L Total Hemoglobin 11.1 L 11.4 L Blood Gas Temperature 37.0 37.0 Blood Gas Modality ROOM AIR NASAL CANNULA FiO2 21.0 27.0 Blood Gas Notified Whom KATERIN CABALLERO Blood Gas Notified Time 05/21/2017 12:12:45 AM 05/21/2017 2:58:18 AM Bedside Glucose 263 H White Blood Count 13.5 #H Red Blood Count 3.53 L Hemoglobin 10.5 L Hematocrit 33.4 L Mean Corpuscular Volume 94.6 Mean Corpuscular Hemoglobin 29.7 Mean Corpuscular Hemoglobin Concent 31.4 L Red Cell Distribution Width 17.1 H Platelet Count 187 Mean Platelet Volume 13.7 H Neutrophils % 67.7 Lymphocytes % 18.4 Monocytes % 12.1 H Eosinophils % 0.5 Basophils % 0.6 Nucleated Red Blood Cells % 0.0 Neutrophils # 9.1 H Lymphocytes # 2.5 Monocytes # 1.6 H Eosinophils # 0.1 Basophils # 0.1 Nucleated Red Blood Cells # 0.0 Lactic Acid Level 4.4 *H Phosphorus Level 3.9 Test 05/21/17 06:37 05/21/17 07:17 05/21/17 07:30 05/21/17 09:06 Bedside Glucose 267 H Blood Gas Specimen Source Blood arterial Blood arterial Arterial Blood Date Drawn 05/21/2017 7:33:10 AM 05/21/2017 12:32:21 PM Arterial Blood pH (Temp corrected) 7.378 7.361 Arterial Blood pCO2 (Temp correct) 31.0 L 32.8 L Arterial Blood pO2 (Temp corrected) 64.8 L 65.9 L Arterial Blood HCO3 17.8 L 18.2 L Arterial Blood Base Excess -6.3 L -6.5 L Arterial Blood Oxygen Saturation 89.9 L 90.9 L Kevin Test N/A ACCEPTAB Arterial Blood Gas Puncture Site Right Brachial Left Radial Arterial Blood Carboxyhemoglobin 0.3 0.2 Arterial Blood Methemoglobin 0.3 0.3 Blood Gas A-a O2 Differential 134.3 H 614.3 H Oxyhemoglobin Percent 89.4 L 90.4 L Total Hemoglobin 11.0 L 9.5 L Blood Gas Temperature 37.0 37.0 Blood Gas Modality NASAL CANNULA VENT - AC FiO2 33.0 100.0 Blood Gas Notified Whom Mirtha Shannon Blood Gas Notified Time 05/21/2017 7:41:43 AM 05/21/2017 12:45:00 PM Urine Color YELLOW Urine Clarity CLOUDY A Urine pH 5.0 Urine Specific [place] 1.018 Urine Ketones TRACE A Urine Nitrite NEGATIVE Urine Bilirubin NEGATIVE Urine Urobilinogen NEGATIVE Urine Leukocyte Esterase 1+ H Urine Microscopic RBC > 182 H Urine Microscopic WBC 70 H Urine Squamous Epithelial Cells FEW Urine Bacteria FEW A Urine Mucus FEW A Urine Hemoglobin 3+ H Urine Glucose 3+ H Urine Total Protein 2+ H Blood Gas Respiration Rate 14.0 Blood Gas Actual Respiration Rate 20 Blood Gas Tidal Volume 500.0 Blood Gas Low PEEP Setting 5.0 Test 05/21/17 09:25 Bedside Glucose 281 H Medications Medications Current Medications Sodium Chloride (NS) 1,000 ml @ 80 mls/hr [id number] IV Last administered on 05/20 21:17; Admin Dose 80 MLS/HR; Start 05/20/17 at 04:36 Ondansetron HCl (Zofran Inj) 4 mg Q6H PRN IV NAUSEA AND/OR VOMITING; Start at 05:00 Acetaminophen (Tylenol Supp) 650 mg Q6H PRN [place] PAIN LEVEL 1-3 OR FEVER Last administered on 05/20/17 07:10; Admin Dose 650 MG; Start 05/20/17 at 05:00 Pantoprazole (Protonix Iv) 40 mg DAILY@06 IV Last administered on 05/21/17 06: 46; Admin Dose 40 MG; Start 05/20/17 at 06:00 Heparin Sodium (Porcine) (Heparin (5000 Units/0.5 ml)) 5,000 unit Q8 SC Last administered on 05/21/17 06:43; Admin Dose 5,000 UNIT; Start 05/20/17 at 06:00 Diagnostic Test (Pha) (Accu-Chek) 1 ea 02 XX ; Start 05/21/17 at 02:00 Insulin Aspart (Novolog Insulin Pen) NOVOLOG *MILD* ALGORI... Q4 SC Last administered on 05/21/17 09:43; Admin Dose 4 UNIT; Start 05/20/17 at 09:00 Hydralazine HCl (Apresoline) 10 mg Q6H PRN IV ELEVATED BLOOD PRESSURE Last administered on 05/20/17t 18:01; Admin Dose 10 MG; Start 05/20/17 at 08:30 Miscellaneous Information 1 ea NOTE XX ; Start 05/20/17 at 09:30 Glucose (Glutose) 15 gm Q15M PRN PO DECREASED GLUCOSE; Start 05/20/17 at 09:30 Glucose (Glutose) 22.5 gm Q15M PRN PO DECREASED GLUCOSE; Start 05/20/17 at 09: 30 Dextrose (D50w Syringe) 25 ml Q15M PRN IV DECREASED GLUCOSE; Start 05/20/17 at 09:30 Dextrose (D50w Syringe) 50 ml Q15M PRN IV DECREASED GLUCOSE; Start 05/20/17 at 09:30 Glucagon (Glucagen) 1 mg Q15M PRN IM DECREASED GLUCOSE; Start 05/20/17 at 09:30 Glucose (Glutose) 15 gm Q15M PRN BUCCAL DECREASED GLUCOSE; Start 05/20/17 at 09 :30 Acetaminophen (Tylenol Tab) 325 mg Q4H PRN PO pain; Start 05/20/17 at 19:30 Aspirin (Halfprin) 81 mg DAILY PO ; Start 05/21/17 at 09:00 Baclofen (Lioresal) 10 mg TID PO ; Start 05/20/17 at 21:00 Carvedilol (Coreg) 3.125 mg BID PO ; Start 05/20/17 at 21:00 Colchicine (Colchicine) 0.6 mg TID PO ; Start 05/20/17 at 21:00; Status UNV Docusate Sodium (Colace) 100 mg DAILY PO ; Start 05/21/17 at 09:00 Ferrous Sulfate (Slow Fe) 282 mg DAILY PO ; Start 05/21/17 at 09:00 Furosemide (Lasix) 40 mg DAILY PO ; Start 05/21/17 at 09:00 Hydroxyzine HCl (Atarax) 25 mg Q6H PRN PO agitation; Start 05/20/17 at 19:30 Ibuprofen (Motrin) 600 mg TID PO ; Start 05/20/17 at 21:00 Metoclopramide HCl (Reglan) 5 mg Q8H PRN PO nausea; Start 05/20/17 at 19:30 Terazosin HCl (Hytrin) 2 mg DAILY PO ; Start 05/21/17 at 09:00 Amitriptyline HCl (Elavil) 10 mg QHS PO ; Start 05/20/17 at 21:00 Lactulose 100 ml 100 ml Q8H [place] ; Start 05/21/17 at 12:00 Propofol (Diprivan) 100 ml @ 3.3 mls/hr Q12H IV Last administered on t 13:03; Admin Dose 19.8 MLS/HR; Start 05/21/17 at 09:30 Diagnostic Test (Pha) (Accu-Chek) 1 02 XX ; Start 05/22/17 at 02:00 Insulin Glargine (Lantus) 17 unit DAILY@08 SC ; Start 05/22/17 at 08:00 Insulin Aspart NOVOLOG *MILD* ALGORI... Q4 SC ; Start 05/21/17 at 13:00 Cefepime HCl 50 ml @ 100 mls/hr Q24H IVPB ; Start 05/21/17 at 12:00 Vancomycin HCl 2 gm/Sodium Chloride 500 ml @ 125 mls/hr ONCE@14 IVPB ; Start at 14:00; Stop 05/21/17 at 21:00 Vancomycin HCl/ Sodium Chloride (Vancocin/NS) 250 ml @ 83.333 mls/ hr Q48H IVPB ; Start 05/23/17 at 13:00 ZAFAR ROQUE May 21, 2017 14:09
[2017-05-21] MEDS: LACTULOSE ENEMA 1,000 ML BTL PR SCH ×2 (14:13→20:57)
[2017-05-21 14:25] LABS: ALBUMIN/GLOBULIN RATIO 0.66
[2017-05-21 14:27] LABS: ALBUMIN 3.3 g/dl (3.3-4.9); BILIRUBIN,INDIRECT 0.8 mg/dl (0-1.1); BILIRUBIN,TOTAL 0.8 mg/dl (0.2-1.3); CALCIUM 8.6 mg/dl (8.4-10.2); CREATININE 1.03 mg/dl (0.61-1.24); MAGNESIUM 1.4 mg/dl (1.7-2.5); POTASSIUM 5.7 mmol/L (3.5-5.1); TOTAL PROTEIN 8.3 g/dl (6.1-8.1)
[2017-05-21] MEDS: CEFEPIME 2GM/50 ML (PMX) 50 ML IVPB SCH (14:33)
--- NOTE | 2017-05-21 16:55 | RADRPT ---
PROCEDURE: XR Abdomen. CLINICAL INDICATION: Nasogastric tube placement TECHNIQUE: Portable supine AP abdomen x-rays, a total of 5 images sent to the PACS for review. COMPARISON: None. FINDINGS: The distal tip of the nasogastric tube points inferiorly within the region of the proximal to mid st omach. The bowel gas pattern is nonspecific There is no evidence of obstruction. No visceromegaly, soft tissue mass or pathologic calcification is demonstrated. The osseous structures are unremarkable. RPTAT:HJJR IMPRESSION: Distal tip of the nasogastric tube is in good position within the proximal to mid stomach without ev idence of acute intra-abdominal pathology. Physician Francesca Date Time Electronically viewed and signed by Physician Francesca on 05/21/2017 16:55 JR/
[2017-05-21] MEDS ORDERED: IBUPROFEN 600 MG TAB PO SCH (21:00)
[2017-05-21] MEDS: AMITRIPTYLINE 10 MG TAB PO SCH (21:42)
[2017-05-21 23:51] LABS: Allen Test ACCEPTAB; Arterial COHb 0.3 % (0.0-3.0); MODE VENT - AC
[2017-05-21 23:54] LABS: AADO2 Arterial 277.6 mmHg (7.0-24.0); Arterial Base Excess -6.5 mmol/L (-3.0-3); Arterial HCO3 17.7 mmol/L (22.0-26.0); Arterial MetHb 0.4 % (0.0-1.5); Arterial Total Hemglobin 10.5 g/dl (12.0-18.0)
[2017-05-22] VITALS (83 sets, daily range): BP systolic 65–141; BP diastolic 33–75; PULSE 51–91; RESP 11–25
[2017-05-22] MEDS: INSULIN ASPART [NOVOLOG] 3 ML PEN SC SCH ×15 (01:00→21:00)
[2017-05-22] MEDS: ACCU-CHEK XX SCH (01:28)
[2017-05-22] MEDS: PROPOFOL 100 ML IV SCH ×4 (01:28→20:02)
[2017-05-22] MEDS ORDERED: ACCU-CHEK XX SCH (02:00)
[2017-05-22] MEDS: LACTULOSE ENEMA 1,000 ML BTL PR SCH ×3 (05:06→20:00)
[2017-05-22] MEDS: PANTOPRAZOLE 40 MG INJ IV SCH (05:11)
[2017-05-22] MEDS: HEPARIN 5,000 UNIT/0.5 ML VIAL SC SCH ×3 (05:13→22:00)
[2017-05-22 05:26] LABS: BASOPHILS % 0.3 % (0.0-2.0); EOSINOPHILS # 0.2 10^3/ul (0.0-0.5); EOSINOPHILS % 2.3 % (0.0-7.0); HEMATOCRIT 27.9 % (42.0-52.0); HEMOGLOBIN 8.6 g/dl (14.0-18.0); LYMPHOCYTES # 1.9 10^3/ul (0.8-2.9); LYMPHOCYTES % 21.1 % (15.0-51.0); MEAN CORPUSCULAR HEMOGLOBIN 29.8 pg (29.0-33.0); MEAN CORPUSCULAR HGB CONC 30.8 g/dl (32.0-37.0); MEAN CORPUSCULAR VOLUME 96.5 fl (82.0-101.0); MEAN PLATELET VOLUME 12.3 fl (7.4-10.4); MONOCYTE # 1.3 10^3/ul (0.3-0.9); MONOCYTES % 13.8 % (0.0-11.0); NEUTROPHIL # 5.7 10^3/ul (1.6-7.5); NEUTROPHILS % 62.3 % (39.0-77.0); PLATELET COUNT 127 10^3/UL (140-415); RED BLOOD COUNT 2.89 10^6/ul (4.70-6.10); RED CELL DISTRIBUTION WIDTH 17.2 % (11.5-14.5); WHITE BLOOD COUNT 9.1 10^3/ul (4.8-10.8)
[2017-05-22 05:46] LABS: CALCIUM 8.3 mg/dl (8.4-10.2); CREATININE 2.48 mg/dl (0.61-1.24); POTASSIUM 3.8 mmol/L (3.5-5.1)
--- NOTE | 2017-05-22 07:31 | CONS ---
Date/Time of Note Date/Time of Note DATE: 05/22/17 TIME: 07:29 Assessment/Plan Assessment/Plan Additional Assessment/Plan Ventilator setting; AC of 14, tidal volume 500, PEEP of 5, 40% FiO2. Patient currently on propofol at 15 mics per kilogram per minute. Assessment and recommendations; 1. Patient admitted with severe sepsis from UTI. Currently on appropriate antibiotic regimen. 2. Possibly superimposed pneumonia. 3. History of diabetes, BPH and hypertension. Continue current treatment. Awaiting chest x-ray from today. Consultation Date/Type/Reason Admit Date/Time May 20, 2017 at 02:37 Initial Consult Date 05/21/17 Type of Consultation: Pulmonary/critical care Referring Provider: FELIX MOISE 24 HR Interval Summary Free Text/Dictation Patient condition remains critical. Still requiring full ventilator support. General exam; elderly male, orally intubated, currently in no distress. Exam/Review of Systems Vital Signs Vitals Vital Signs Date Time Temp Pulse Resp B/P Pulse Ox O2 Delivery O2 Flow Rate FiO2 05/22/17 06:30 80 20 98 05/22/17 06:00 105/64 05/22/17 05:10 40 05/22/17 00:00 98.6 05/21/17 10:00 Mechanical Ventilator 05/21/17 05:00 4.0 Intake and Output 05/21/17 05/21/17 05/22/17 15:00 23:00 07:00 Intake Total 1441.3 ml 425.4 ml 465.5 ml Output Total 210 ml 270 ml 150 ml Balance 1231.3 ml 155.4 ml 315.5 ml Exam HEENT exam; supple neck, no JVD. No lymphadenopathy. Midline trachea. No thyromegaly. Orally intubated. Patient does have multiple carious teeth. Chest exam; diminished but clear breath sound. S1-S2 audible, no murmurs. Regular rhythm. Abdomen exam; soft, no organomegaly. Bowel sounds audible. Extremity exam; trace peripheral edema. DRIVE MAN exam; patient is currently sedated. Results Result Diagram: 05/22/17 0450 05/22/17 0450 Results 24 hrs Laboratory Tests Test 05/21/17 07:30 05/21/17 09:06 05/21/17 09:25 05/21/17 14:13 Urine Color YELLOW Urine Clarity CLOUDY A Urine pH 5.0 Urine Specific [place] 1.018 Urine Ketones TRACE A Urine Nitrite NEGATIVE Urine Bilirubin NEGATIVE Urine Urobilinogen NEGATIVE Urine Leukocyte Esterase 1+ H Urine Microscopic RBC > 182 H Urine Microscopic WBC 70 H Urine Squamous Epithelial Cells FEW Urine Bacteria FEW A Urine Mucus FEW A Urine Hemoglobin 3+ H Urine Glucose 3+ H Urine Total Protein 2+ H Blood Gas Specimen Source Blood arterial Arterial Blood Date Drawn 05/21/2017 12:32:21 PM Arterial Blood pH (Temp corrected) 7.361 Arterial Blood pCO2 (Temp correct) 32.8 L Arterial Blood pO2 (Temp corrected) 65.9 L Arterial Blood HCO3 18.2 L Arterial Blood Base Excess -6.5 L Arterial Blood Oxygen Saturation 90.9 L Kevin Test ACCEPTAB Arterial Blood Gas Puncture Site Left Radial Arterial Blood Carboxyhemoglobin 0.2 Arterial Blood Methemoglobin 0.3 Blood Gas A-a O2 Differential 614.3 H Oxyhemoglobin Percent 90.4 L Total Hemoglobin 9.5 L Blood Gas Temperature 37.0 Blood Gas Respiration Rate 14.0 Blood Gas Actual Respiration Rate 20 Blood Gas Modality VENT - AC FiO2 100.0 Blood Gas Tidal Volume 500.0 Blood Gas Low PEEP Setting 5.0 Blood Gas Notified Whom M.D. Blood Gas Notified Time 05/21/2017 12:45:00 PM Bedside Glucose 281 H 282 H Test 05/21/17 17:29 05/21/17 20:56 05/21/17 23:00 05/22/17 00:40 Bedside Glucose 256 H 220 201 Blood Gas Specimen Source Blood arterial Arterial Blood Date Drawn 05/21/2017 11:45:37 PM Arterial Blood pH (Temp corrected) 7.378 Arterial Blood pCO2 (Temp correct) 30.7 L Arterial Blood pO2 (Temp corrected) 188.5 H Arterial Blood HCO3 17.7 L Arterial Blood Base Excess -6.5 L Arterial Blood Oxygen Saturation 98.7 Kevin Test ACCEPTAB Arterial Blood Gas Puncture Site Left Radial Arterial Blood Carboxyhemoglobin 0.3 Arterial Blood Methemoglobin 0.4 Blood Gas A-a O2 Differential 277.6 H Oxyhemoglobin Percent 98.0 Total Hemoglobin 10.5 L Blood Gas Temperature 37.0 Blood Gas Respiration Rate 14.0 Blood Gas Modality VENT - AC FiO2 70.0 Blood Gas Tidal Volume 500.0 Blood Gas High PEEP Setting 5.0 Blood Gas Low PEEP Setting 5.0 Blood Gas Critical Value Read Back leandra Blood Gas Notified Whom MILLI Blood Gas Notified Time 05/21/2017 11:54:24 PM Test 05/22/17 04:50 05/22/17 05:05 White Blood Count 9.1 # Red Blood Count 2.89 L Hemoglobin 8.6 L Hematocrit 27.9 L Mean Corpuscular Volume 96.5 Mean Corpuscular Hemoglobin 29.8 Mean Corpuscular Hemoglobin Concent 30.8 L Red Cell Distribution Width 17.2 H Platelet Count 127 #L Mean Platelet Volume 12.3 H Neutrophils % 62.3 Lymphocytes % 21.1 Monocytes % 13.8 H Eosinophils % 2.3 Basophils % 0.3 Nucleated Red Blood Cells % 0.0 Neutrophils # 5.7 Lymphocytes # 1.9 Monocytes # 1.3 H Eosinophils # 0.2 Basophils # 0.0 Nucleated Red Blood Cells # 0.0 Sodium Level 152 #H Potassium Level 3.8 Chloride Level 118 H Carbon Dioxide Level 21 Anion Gap 17 H Blood Urea Nitrogen 37 #H Creatinine 2.48 #H Glucose Level 185 Calcium Level 8.3 L Bedside Glucose 175 Medications Medications Current Medications Sodium Chloride (NS) 1,000 ml @ 50 mls/hr Q20H IV Last administered on 20:55; Admin Dose 50 MLS/HR; Start 05/20/17 at 04:36 Ondansetron HCl (Zofran Inj) 4 mg Q6H PRN IV NAUSEA AND/OR VOMITING; Start at 05:00 Acetaminophen (Tylenol Supp) 650 mg Q6H PRN [place] PAIN LEVEL 1-3 OR FEVER Last administered on 05/20/17 07:10; Admin Dose 650 MG; Start 05/20/17 at 05:00 Pantoprazole (Protonix Iv) 40 mg DAILY@06 IV Last administered on 05/22/17 05: 11; Admin Dose 40 MG; Start 05/20/17 at 06:00 Heparin Sodium (Porcine) (Heparin (5000 Units/0.5 ml)) 5,000 unit Q8 SC Last administered on 05/22/17 05:13; Admin Dose 5,000 UNIT; Start 05/20/17 at 06:00 Diagnostic Test (Pha) (Accu-Chek) 1 ea 02 XX ; Start 05/21/17 at 02:00 Insulin Aspart (Novolog Insulin Pen) NOVOLOG *MILD* ALGORI... Q4 SC Last administered on 05/21/17 09:43; Admin Dose 4 UNIT; Start 05/20/17 at 09:00 Hydralazine HCl (Apresoline) 10 mg Q6H PRN IV ELEVATED BLOOD PRESSURE Last administered on 05/20/17 18:01; Admin Dose 10 MG; Start 05/20/17 at 08:30 Miscellaneous Information 1 ea NOTE XX ; Start 05/20/17 at 09:30 Glucose (Glutose) 15 gm Q15M PRN PO DECREASED GLUCOSE; Start 05/20/17 at 09:30 Glucose (Glutose) 22.5 gm Q15M PRN PO DECREASED GLUCOSE; Start 05/20/17 at 09: 30 Dextrose (D50w Syringe) 25 ml Q15M PRN IV DECREASED GLUCOSE; Start 05/20/17 at 09:30 Dextrose (D50w Syringe) 50 ml Q15M PRN IV DECREASED GLUCOSE; Start 05/20/17 at 09:30 Glucagon (Glucagen) 1 mg Q15M PRN IM DECREASED GLUCOSE; Start 05/20/17 at 09:30 Glucose (Glutose) 15 gm Q15M PRN BUCCAL DECREASED GLUCOSE; Start 05/20/17 at 09 :30 Acetaminophen (Tylenol Tab) 325 mg Q4H PRN PO pain; Start 05/20/17 at 19:30 Aspirin (Halfprin) 81 mg DAILY PO ; Start 05/21/17 at 09:00 Baclofen (Lioresal) 10 mg TID PO ; Start 05/20/17 at 21:00 Carvedilol (Coreg) 3.125 mg BID PO ; Start 05/20/17 at 21:00 Colchicine (Colchicine) 0.6 mg TID PO ; Start 05/20/17 at 21:00; Status UNV Docusate Sodium (Colace) 100 mg DAILY PO ; Start 05/21/17 at 09:00 Ferrous Sulfate (Slow Fe) 282 mg DAILY PO ; Start 05/21/17 at 09:00 Furosemide (Lasix) 40 mg DAILY PO ; Start 05/21/17 at 09:00 Hydroxyzine HCl (Atarax) 25 mg Q6H PRN PO agitation; Start 05/20/17 at 19:30 Metoclopramide HCl (Reglan) 5 mg Q8H PRN PO nausea; Start 05/20/17 at 19:30 Terazosin HCl (Hytrin) 2 mg DAILY PO ; Start 05/21/17 at 09:00 Amitriptyline HCl (Elavil) 10 mg QHS PO Last administered on 05/21/17 21:42; Admin Dose 10 MG; Start 05/20/17 at 21:00 Lactulose 100 ml 100 ml Q8H [place] Last administered on 05/22/17 05:06; Admin Dose 100 ML; Start 05/21/17 at 12:00 Propofol (Diprivan) 100 ml @ 3.3 mls/hr Q12H IV Last administered on 05/22/17 07:07; Admin Dose 9.9 MLS/HR; Start 05/21/17 at 09:30 Insulin Glargine (Lantus) 17 unit DAILY@08 SC ; Start 05/22/17 at 08:00 Insulin Aspart NOVOLOG *MILD* ALGORI... Q4 SC Last administered on 05/22/17 05: 08; Admin Dose 1 UNIT; Start 05/21/17 at 13:00 Cefepime HCl 50 ml @ 100 mls/hr Q24H IVPB Last administered on 05/21/17 14:33 ; Admin Dose 100 MLS/HR; Start 05/21/17 at 12:00 Vancomycin HCl/ Sodium Chloride (Vancocin/NS) 250 ml @ 83.333 mls/ hr Q48H IVPB ; Start 05/23/17 at 13:00 Ibuprofen 600 mg 600 mg TID PO Last administered on 05/21/17 21:42; Admin Dose 600 MG; Start 05/21/17 at 21:00 Norepinephrine/ Dextrose (Levophed/D5W) 500 ml @ 1.87 mls/hr TITRATE IV ; Start 05/22/17 at 07:00 ART ESTEVEZ May 22, 2017 07:31
--- NOTE | 2017-05-22 07:47 | PN ---
Date/Time of Note Date/Time of Note DATE: 05/22/17 TIME: 07:39 Assessment/Plan VTE Prophylaxis VTE Prophylaxis Intervention: other Lines/Catheters IV C[facility] Type (from [facility] Saline Lock Urinary Cath still in place: Yes Reason Cath still needed: other (indicate) Assessment/Plan Chief Complaint/Hosp Course 1. Nonoliguric acute kidney injury on top of chronic kidney disease stage IIIB/ 4, with previous baseline creatinine of 1.5 to 2.3 mg/dL. - Etiology of current acute kidney injury may be secondary to hemodynamics, NSAID use, septic [place] I. Questionable tubular injury. Renal function continues to fluctuate, We will continue current treatment plan supportive care renally dose all meds. Discontinue NSAIDs, hold Lasix 2. History of chronic kidney injury, likely due to underlying diabetes and hypertension. -The patient has currently in acute kidney injury as stated above. -Continue medical management. 3. Anemia monitor H and H levels. 4. Mineral bone disorder. Will monitor calcium and phosphorus levels. Hypernatremia We will start patient free water flushes 200 cc every 4 hours Severe sepsis secondary to UTI Continue antibiotics, continue IV fluids consider pressor support Ventilator dependent respiratory failure, Vent settings are reviewed ABG chest x-ray reviewed Follow-up with pulmonary 5. Acute encephalopathy. Etiology unclear if this is due to infectious versus toxic metabolic versus questionable cerebrovascular accident. The patient's initial CT scan was negative. 6. Diabetes. Continue Accu-Chek and sliding scale. 7. Hypertension. Continue current blood pressure regimen. 8. Benign prostatic hypertrophy. Continue medical management. Problems: Subjective 24 Hr Interval Summary Free Text/Dictation Patient seen and examined Remains critically ill on full ventilatory support Blood pressures have been low Urinary output marginal Exam/Review of Systems Vital Signs Vitals Vital Signs Date Time Temp Pulse Resp B/P Pulse Ox O2 Delivery O2 Flow Rate FiO2 05/22/17 06:30 80 20 98 05/22/17 06:00 105/64 05/22/17 05:10 40 05/22/17 00:00 98.6 05/21/17 10:00 Mechanical Ventilator 05/21/17 05:00 4.0 Intake and Output 05/21/17 05/21/17 05/22/17 15:00 23:00 07:00 Intake Total 1441.3 ml 425.4 ml 465.5 ml Output Total 210 ml 270 ml 150 ml Balance 1231.3 ml 155.4 ml 315.5 ml Exam General: Patient appears confused, restless in bed HEENT: Atraumatic, normocephalic. The pupils are equal, round and reactive. Extraocular motor are intact Neck: Supple with full range of motion. No rigidity or meningismus Chest: Nontender Lungs: Clear to auscultation bilaterally no crackles rales or wheezing Heart: Normal S1-S2, Regular rhythm and rate. No overt murmurs appreciated Abdomen: Soft , nontender, nondistended , bowel sounds are present. No guarding no rebound tenderness Extremities: Normal to inspection, no edema no cyanosis Neurologic: Confused, awake. He does respond to his name however he is not able to verbalize coherently. Results Result Diagram: 05/22/17 0450 05/22/17 0450 Results 24 hrs Laboratory Tests Test 05/21/17 09:06 05/21/17 09:25 05/21/17 14:13 05/21/17 17:29 Blood Gas Specimen Source Blood arterial Arterial Blood Date Drawn 05/21/2017 12:32:21 PM Arterial Blood pH (Temp corrected) 7.361 Arterial Blood pCO2 (Temp correct) 32.8 L Arterial Blood pO2 (Temp corrected) 65.9 L Arterial Blood HCO3 18.2 L Arterial Blood Base Excess -6.5 L Arterial Blood Oxygen Saturation 90.9 L Kevin Test ACCEPTAB Arterial Blood Gas Puncture Site Left Radial Arterial Blood Carboxyhemoglobin 0.2 Arterial Blood Methemoglobin 0.3 Blood Gas A-a O2 Differential 614.3 H Oxyhemoglobin Percent 90.4 L Total Hemoglobin 9.5 L Blood Gas Temperature 37.0 Blood Gas Respiration Rate 14.0 Blood Gas Actual Respiration Rate 20 Blood Gas Modality VENT - AC FiO2 100.0 Blood Gas Tidal Volume 500.0 Blood Gas Low PEEP Setting 5.0 Blood Gas Notified Whom M.D. Blood Gas Notified Time 05/21/2017 12:45:00 PM Bedside Glucose 281 H 282 H 256 H Test 05/21/17 20:56 05/21/17 23:00 05/22/17 00:40 05/22/17 04:50 Bedside Glucose 220 201 Blood Gas Specimen Source Blood arterial Arterial Blood Date Drawn 05/21/2017 11:45:37 PM Arterial Blood pH (Temp corrected) 7.378 Arterial Blood pCO2 (Temp correct) 30.7 L Arterial Blood pO2 (Temp corrected) 188.5 H Arterial Blood HCO3 17.7 L Arterial Blood Base Excess -6.5 L Arterial Blood Oxygen Saturation 98.7 Kevin Test ACCEPTAB Arterial Blood Gas Puncture Site Left Radial Arterial Blood Carboxyhemoglobin 0.3 Arterial Blood Methemoglobin 0.4 Blood Gas A-a O2 Differential 277.6 H Oxyhemoglobin Percent 98.0 Total Hemoglobin 10.5 L Blood Gas Temperature 37.0 Blood Gas Respiration Rate 14.0 Blood Gas Modality VENT - AC FiO2 70.0 Blood Gas Tidal Volume 500.0 Blood Gas High PEEP Setting 5.0 Blood Gas Low PEEP Setting 5.0 Blood Gas Critical Value Read Back leandra Blood Gas Notified Whom MILLI Blood Gas Notified Time 05/21/2017 11:54:24 PM White Blood Count 9.1 # Red Blood Count 2.89 L Hemoglobin 8.6 L Hematocrit 27.9 L Mean Corpuscular Volume 96.5 Mean Corpuscular Hemoglobin 29.8 Mean Corpuscular Hemoglobin Concent 30.8 L Red Cell Distribution Width 17.2 H Platelet Count 127 #L Mean Platelet Volume 12.3 H Neutrophils % 62.3 Lymphocytes % 21.1 Monocytes % 13.8 H Eosinophils % 2.3 Basophils % 0.3 Nucleated Red Blood Cells % 0.0 Neutrophils # 5.7 Lymphocytes # 1.9 Monocytes # 1.3 H Eosinophils # 0.2 Basophils # 0.0 Nucleated Red Blood Cells # 0.0 Sodium Level 152 #H Potassium Level 3.8 Chloride Level 118 H Carbon Dioxide Level 21 Anion Gap 17 H Blood Urea Nitrogen 37 #H Creatinine 2.48 #H Glucose Level 185 Calcium Level 8.3 L Test 05/22/17 05:05 Bedside Glucose 175 Medications Medications Current Medications Sodium Chloride (NS) 1,000 ml @ 50 mls/hr Q20H IV Last administered on 20:55; Admin Dose 50 MLS/HR; Start 05/20/17 at 04:36 Ondansetron HCl (Zofran Inj) 4 mg Q6H PRN IV NAUSEA AND/OR VOMITING; Start at 05:00 Acetaminophen (Tylenol Supp) 650 mg Q6H PRN [place] PAIN LEVEL 1-3 OR FEVER Last administered on 05/20/17 07:10; Admin Dose 650 MG; Start 05/20/17 at 05:00 Pantoprazole (Protonix Iv) 40 mg DAILY@06 IV Last administered on 05/22/17 05: 11; Admin Dose 40 MG; Start 05/20/17 at 06:00 Heparin Sodium (Porcine) (Heparin (5000 Units/0.5 ml)) 5,000 unit Q8 SC Last administered on 05/22/17 05:13; Admin Dose 5,000 UNIT; Start 05/20/17 at 06:00 Diagnostic Test (Pha) (Accu-Chek) 1 ea 02 XX ; Start 05/21/17 at 02:00 Insulin Aspart (Novolog Insulin Pen) NOVOLOG *MILD* ALGORI... Q4 SC Last administered on 05/21/17 09:43; Admin Dose 4 UNIT; Start 05/20/17 at 09:00 Hydralazine HCl (Apresoline) 10 mg Q6H PRN IV ELEVATED BLOOD PRESSURE Last administered on 05/20/17 18:01; Admin Dose 10 MG; Start 05/20/17 at 08:30 Miscellaneous Information 1 ea NOTE XX ; Start 05/20/17 at 09:30 Glucose (Glutose) 15 gm Q15M PRN PO DECREASED GLUCOSE; Start 05/20/17 at 09:30 Glucose (Glutose) 22.5 gm Q15M PRN PO DECREASED GLUCOSE; Start 05/20/17 at 09: 30 Dextrose (D50w Syringe) 25 ml Q15M PRN IV DECREASED GLUCOSE; Start 05/20/17 at 09:30 Dextrose (D50w Syringe) 50 ml Q15M PRN IV DECREASED GLUCOSE; Start 05/20/17 at 09:30 Glucagon (Glucagen) 1 mg Q15M PRN IM DECREASED GLUCOSE; Start 05/20/17 at 09:30 Glucose (Glutose) 15 gm Q15M PRN BUCCAL DECREASED GLUCOSE; Start 05/20/17 at 09 :30 Acetaminophen (Tylenol Tab) 325 mg Q4H PRN PO pain; Start 05/20/17 at 19:30 Aspirin (Halfprin) 81 mg DAILY PO ; Start 05/21/17 at 09:00 Baclofen (Lioresal) 10 mg TID PO ; Start 05/20/17 at 21:00 Carvedilol (Coreg) 3.125 mg BID PO ; Start 05/20/17 at 21:00 Colchicine (Colchicine) 0.6 mg TID PO ; Start 05/20/17 at 21:00; Status UNV Docusate Sodium (Colace) 100 mg DAILY PO ; Start 05/21/17 at 09:00 Ferrous Sulfate (Slow Fe) 282 mg DAILY PO ; Start 05/21/17 at 09:00 Furosemide (Lasix) 40 mg DAILY PO ; Start 05/21/17 at 09:00 Hydroxyzine HCl (Atarax) 25 mg Q6H PRN PO agitation; Start 05/20/17 at 19:30 Metoclopramide HCl (Reglan) 5 mg Q8H PRN PO nausea; Start 05/20/17 at 19:30 Terazosin HCl (Hytrin) 2 mg DAILY PO ; Start 05/21/17 at 09:00 Amitriptyline HCl (Elavil) 10 mg QHS PO Last administered on 05/21/17 21:42; Admin Dose 10 MG; Start 05/20/17 at 21:00 Lactulose 100 ml 100 ml Q8H [place] Last administered on 05/22/17 05:06; Admin Dose 100 ML; Start 05/21/17 at 12:00 Propofol (Diprivan) 100 ml @ 3.3 mls/hr Q12H IV Last administered on 05/22/17 07:07; Admin Dose 9.9 MLS/HR; Start 05/21/17 at 09:30 Insulin Glargine (Lantus) 17 unit DAILY@08 SC ; Start 05/22/17 at 08:00 Insulin Aspart NOVOLOG *MILD* ALGORI... Q4 SC Last administered on 05/22/17 05: 08; Admin Dose 1 UNIT; Start 05/21/17 at 13:00 Cefepime HCl 50 ml @ 100 mls/hr Q24H IVPB Last administered on 05/21/17 14:33 ; Admin Dose 100 MLS/HR; Start 05/21/17 at 12:00 Vancomycin HCl/ Sodium Chloride (Vancocin/NS) 250 ml @ 83.333 mls/ hr Q48H IVPB ; Start 05/23/17 at 13:00 Ibuprofen 600 mg 600 mg TID PO Last administered on 05/21/17 21:42; Admin Dose 600 MG; Start 05/21/17 at 21:00 Norepinephrine/ Dextrose (Levophed/D5W) 500 ml @ 1.87 mls/hr TITRATE IV ; Start 05/22/17 at 07:00 FRED LOWERY DO May 22, 2017 07:47
[2017-05-22 08:00] LABS: AADO2 Arterial 154.5 mmHg (7.0-24.0); Allen Test ACCEPTAB; Arterial Base Excess -6.7 mmol/L (-3.0-3); Arterial COHb 0.2 % (0.0-3.0); Arterial Fraction of Oxyhgb 95.9 % (93.0-99.0); Arterial HCO3 17.3 mmol/L (22.0-26.0); Arterial MetHb 0.3 % (0.0-1.5); Arterial Total Hemglobin 10.2 g/dl (12.0-18.0); MODE VENT - AC
--- NOTE | 2017-05-22 08:18 | PN ---
DATE: 05/21/2017 SUBJECTIVE DATA: Overnight the patient was transferred from telemetry to the intensive care unit where the patient was intubated due to respiratory distress. The patient had no episodes of hemoptysis. No hematemesis. No hematochezia. The patient hemodynamically has been stable, has not been placed on any pressor support. OBJECTIVE DATA: VITAL SIGNS: Blood pressure 142/76, respirations 28, pulse 95, temperature 98.0 HEENT: Head is normocephalic. NECK: Supple. HEART: Regular rate. LUNGS: Diminished breath sounds at the base. ABDOMEN: Soft, nontender to palpation. No rebound or guarding. EXTREMITIES: Negative for clubbing, cyanosis, or edema. DERMATOLOGIC: No rashes. MUSCULOSKELETAL: No joint effusion. NEUROLOGIC: No change in exam. The patient's medications have been reviewed. LABORATORY AND DIAGNOSTIC DATA: White count 13.5, hemoglobin 10.5, hematocrit 23.4, platelet count is 187. The patient's BMP is currently pending. Chest x-ray shows stable pulmonary vascular congestion and increased interstitial prominence, bilateral lower lobe infiltrates. ASSESSMENT AND PLAN: 1. Nonoliguric acute kidney injury on top of chronic kidney disease, stage 3B/4, with previous baseline creatinine of 1.5 to 2.3 mg/dL. Etiology of currently UTI is secondary to hemodynamics, possible tubular injury. The patient's repeat urinalysis was reviewed. It shows evidence of pyuria, hematuria, proteinuria. This is likely due to [place] trauma in conjunction with UTI. The possibility of an acute GN is a consideration, although less likely. At this point, I would continue current treatment plan, continue supportive care, renal dose medications, avoid nephrotoxins, continue IV antibiotics and monitor renal function closely. 2. History of chronic kidney disease, likely due to underlying diabetes and hypertension. The patient is currently in acute kidney injury as stated above. Continue current treatment plan. Continue disease factor modification. 3. Anemia. Monitor hemoglobin and hematocrit levels. 4. Mineral bone disorder. Monitor calcium plus levels. 5. Acute hypoxemic respiratory failure, likely secondary to underlying pneumonia. The patient is intubated. Continue current medical management. ABG, chest x-ray reviewed. Follow up with Pulmonary. 6. Acute encephalopathy, etiology is likely toxic metabolic. Continue to monitor. 7. Diabetes. Continue Accu-Chek and insulin sliding scale. 8. Hypertension. Continue current blood pressure regimen. 9. Sepsis secondary to urinary tract infection. Continue current antibiotic regimen. 10. Benign prostatic hypertrophy. Continue medical management. Dictated By: Jl Pizano DO /vincent/ronald /Document#: [id number]
[2017-05-22] MEDS: TERAZOSIN 2 MG CAP PO SCH (08:43)
[2017-05-22] MEDS: ASPIRIN (EC) 81 MG TAB PO SCH (09:00)
[2017-05-22] MEDS: DOCUSATE SODIUM 250 MG CAP PO SCH (09:00)
[2017-05-22] MEDS: FERROUS SULFATE (SR) 142 MG TAB PO SCH (09:00)
[2017-05-22] MEDS: INSULIN GLARGINE [LANtus] 3 ML PEN SC SCH (09:22)
[2017-05-22] MEDS: BACLOFEN 10 MG TAB PO SCH ×3 (09:23→21:03)
--- NOTE | 2017-05-22 09:48 | RADRPT ---
PROCEDURE: XR Chest 1 view. CLINICAL INDICATION: Shortness of breath TECHNIQUE: AP views of the chest was obtained. COMPARISON: Yesterday FINDINGS: The heart is large. Calcified atherosclerosis is noted in the aorta. Endotracheal tube is stable an d appears in grossly appropriate location. Nasogastric tube has its distal end in the expected loca tion of the stomach. The lungs are hypoinflated. Central pulmonary vascular congestion and interst itial prominence is seen in both lungs. Retrocardiac opacity stable. Perihilar infiltrates in the right lung have decreased. The osseous structures are unchanged. IMPRESSION: Cardiomegaly with calcified atherosclerosis in the aorta. Nasogastric tube with its distal end in the expected location of the stomach. Central pulmonary vascular congestion and interstitial prominence in both lungs. Mild interval decrease in perihilar infiltrates throughout the right lung. Stable retrocardiac opacity that may reflect left lower lobe atelectasis or infiltrate combined with small pleural effusion. RPTAT: AA .Ernesto Sun MD, Date Time Electronically viewed and signed by .Ernesto Sun MD, on 05/22/2017 09:47 .P/
--- NOTE | 2017-05-22 11:24 | CONS ---
Date/Time of Note Date/Time of Note DATE: 05/22/17 TIME: 11:22 Consult Date/Type/Reason Admit Date/Time May 20, 2017 at 02:37 Initial Consult Date 05/21/17 Type of Consultation: Neurology Reason for Consultation encephalopathy Ordering Provider: FELIX MOISE Subjective hypotensive, propofol drip lowered moving around in the bed without following any commands remains intubated Objective Vital Signs Date Time Temp Pulse Resp B/P Pulse Ox O2 Delivery O2 Flow Rate FiO2 05/22/17 09:15 86 16 97 40 05/22/17 06:00 105/64 05/22/17 00:00 98.6 05/21/17 10:00 Mechanical Ventilator 05/21/17 05:00 4.0 Intake and Output 05/21/17 05/21/17 05/22/17 15:00 23:00 07:00 Intake Total 1441.3 ml 425.4 ml 465.5 ml Output Total 210 ml 270 ml 150 ml Balance 1231.3 ml 155.4 ml 315.5 ml Exam intubated low dose sedation unable to follow commands unable to open his eyes spontaneously CN: EMELIA, corneals and gag present Motor moving both UE spontaneously , w/d to LE Results/Medications Result Diagram: 05/22/17 0450 05/22/17 0450 Results 24 hrs Laboratory Tests Test 05/21/17 14:13 05/21/17 17:29 05/21/17 20:56 05/21/17 23:00 Bedside Glucose 282 H 256 H 220 Blood Gas Specimen Source Blood arterial Arterial Blood Date Drawn 05/21/2017 11:45:37 PM Arterial Blood pH (Temp corrected) 7.378 Arterial Blood pCO2 (Temp correct) 30.7 L Arterial Blood pO2 (Temp corrected) 188.5 H Arterial Blood HCO3 17.7 L Arterial Blood Base Excess -6.5 L Arterial Blood Oxygen Saturation 98.7 Kevin Test ACCEPTAB Arterial Blood Gas Puncture Site Left Radial Arterial Blood Carboxyhemoglobin 0.3 Arterial Blood Methemoglobin 0.4 Blood Gas A-a O2 Differential 277.6 H Oxyhemoglobin Percent 98.0 Total Hemoglobin 10.5 L Blood Gas Temperature 37.0 Blood Gas Respiration Rate 14.0 Blood Gas Modality VENT - AC FiO2 70.0 Blood Gas Tidal Volume 500.0 Blood Gas High PEEP Setting 5.0 Blood Gas Low PEEP Setting 5.0 Blood Gas Critical Value Read Back leandra Blood Gas Notified Whom MILLI Blood Gas Notified Time 05/21/2017 11:54:24 PM Test 05/22/17 00:40 05/22/17 04:50 05/22/17 05:05 05/22/17 07:00 Bedside Glucose 201 175 White Blood Count 9.1 # Red Blood Count 2.89 L Hemoglobin 8.6 L Hematocrit 27.9 L Mean Corpuscular Volume 96.5 Mean Corpuscular Hemoglobin 29.8 Mean Corpuscular Hemoglobin Concent 30.8 L Red Cell Distribution Width 17.2 H Platelet Count 127 #L Mean Platelet Volume 12.3 H Neutrophils % 62.3 Lymphocytes % 21.1 Monocytes % 13.8 H Eosinophils % 2.3 Basophils % 0.3 Nucleated Red Blood Cells % 0.0 Neutrophils # 5.7 Lymphocytes # 1.9 Monocytes # 1.3 H Eosinophils # 0.2 Basophils # 0.0 Nucleated Red Blood Cells # 0.0 Sodium Level 152 #H Potassium Level 3.8 Chloride Level 118 H Carbon Dioxide Level 21 Anion Gap 17 H Blood Urea Nitrogen 37 #H Creatinine 2.48 #H Glucose Level 185 Calcium Level 8.3 L Blood Gas Specimen Source Blood arterial Arterial Blood Date Drawn 05/22/2017 7:50:29 AM Arterial Blood pH (Temp corrected) 7.384 Arterial Blood pCO2 (Temp correct) 29.7 L Arterial Blood pO2 (Temp corrected) 96.5 H Arterial Blood HCO3 17.3 L Arterial Blood Base Excess -6.7 L Arterial Blood Oxygen Saturation 96.4 Kevin Test ACCEPTAB Arterial Blood Gas Puncture Site Right Radial Arterial Blood Carboxyhemoglobin 0.2 Arterial Blood Methemoglobin 0.3 Blood Gas A-a O2 Differential 154.5 H Oxyhemoglobin Percent 95.9 Total Hemoglobin 10.2 L Blood Gas Temperature 37.0 Blood Gas Respiration Rate 14.0 Blood Gas Actual Respiration Rate 22 Blood Gas Modality VENT - AC FiO2 40.0 Blood Gas Tidal Volume 500.0 Blood Gas High PEEP Setting 5.0 Blood Gas Notified Whom TM Blood Gas Notified Time 05/22/2017 8:00:08 AM Test 05/22/17 08:58 Bedside Glucose 160 Medications Current Medications Sodium Chloride (NS) 1,000 ml @ 75 mls/hr [id number] IV Last administered on 05/21t 20:55; Admin Dose 50 MLS/HR; Start 05/20/17 at 04:36 Ondansetron HCl (Zofran Inj) 4 mg Q6H PRN IV NAUSEA AND/OR VOMITING; Start at 05:00 Acetaminophen (Tylenol Supp) 650 mg Q6H PRN [place] PAIN LEVEL 1-3 OR FEVER Last administered on 05/20/17 07:10; Admin Dose 650 MG; Start 05/20/17 at 05:00 Pantoprazole (Protonix Iv) 40 mg DAILY@06 IV Last administered on 05/22/17 05: 11; Admin Dose 40 MG; Start 05/20/17 at 06:00 Heparin Sodium (Porcine) (Heparin (5000 Units/0.5 ml)) 5,000 unit Q8 SC Last administered on 05/22/17 05:13; Admin Dose 5,000 UNIT; Start 05/20/17 at 06:00 Diagnostic Test (Pha) (Accu-Chek) 1 ea 02 XX ; Start 05/21/17 at 02:00 Insulin Aspart (Novolog Insulin Pen) NOVOLOG *MILD* ALGORI... Q4 SC Last administered on 05/22/17 09:23; Admin Dose 1 UNIT; Start 05/20/17 at 09:00 Hydralazine HCl (Apresoline) 10 mg Q6H PRN IV ELEVATED BLOOD PRESSURE Last administered on 05/20/17 18:01; Admin Dose 10 MG; Start 05/20/17 at 08:30 Miscellaneous Information 1 ea NOTE XX ; Start 05/20/17 at 09:30 Glucose (Glutose) 15 gm Q15M PRN PO DECREASED GLUCOSE; Start 05/20/17 at 09:30 Glucose (Glutose) 22.5 gm Q15M PRN PO DECREASED GLUCOSE; Start 05/20/17 at 09: 30 Dextrose (D50w Syringe) 25 ml Q15M PRN IV DECREASED GLUCOSE; Start 05/20/17 at 09:30 Dextrose (D50w Syringe) 50 ml Q15M PRN IV DECREASED GLUCOSE; Start 05/20/17 at 09:30 Glucagon (Glucagen) 1 mg Q15M PRN IM DECREASED GLUCOSE; Start 05/20/17 at 09:30 Glucose (Glutose) 15 gm Q15M PRN BUCCAL DECREASED GLUCOSE; Start 05/20/17 at 09 :30 Acetaminophen (Tylenol Tab) 325 mg Q4H PRN PO pain; Start 05/20/17 at 19:30 Aspirin (Halfprin) 81 mg DAILY PO ; Start 05/21/17 at 09:00 Baclofen (Lioresal) 10 mg TID PO Last administered on 05/22/17 09:23; Admin Dose 10 MG; Start 05/20/17 at 21:00 Carvedilol (Coreg) 3.125 mg BID PO ; Start 05/20/17 at 21:00 Colchicine (Colchicine) 0.6 mg TID PO ; Start 05/20/17 at 21:00; Status UNV Docusate Sodium (Colace) 100 mg DAILY PO ; Start 05/21/17 at 09:00 Ferrous Sulfate (Slow Fe) 282 mg DAILY PO ; Start 05/21/17 at 09:00 Furosemide (Lasix) 40 mg DAILY PO ; Start 05/21/17 at 09:00; Status Future Hold Hydroxyzine HCl (Atarax) 25 mg Q6H PRN PO agitation; Start 05/20/17 at 19:30 Metoclopramide HCl (Reglan) 5 mg Q8H PRN PO nausea; Start 05/20/17 at 19:30 Terazosin HCl (Hytrin) 2 mg DAILY PO ; Start 05/21/17 at 09:00 Amitriptyline HCl (Elavil) 10 mg QHS PO Last administered on 05/21/17 21:42; Admin Dose 10 MG; Start 05/20/17 at 21:00 Lactulose 100 ml 100 ml Q8H SD Last administered on 05/22/17 05:06; Admin Dose 100 ML; Start 05/21/17 at 12:00 Propofol (Diprivan) 100 ml @ 3.3 mls/hr Q12H IV Last administered on 05/22/17 07:07; Admin Dose 9.9 MLS/HR; Start 05/21/17 at 09:30 Insulin Glargine (Lantus) 17 unit DAILY@08 SC Last administered on 05/22/17 09: 22; Admin Dose 17 UNIT; Start 05/22/17 at 08:00 Insulin Aspart NOVOLOG *MILD* ALGORI... Q4 SC Last administered on 05/22/17 05: 08; Admin Dose 1 UNIT; Start 05/21/17 at 13:00 Cefepime HCl 50 ml @ 100 mls/hr Q24H IVPB Last administered on 05/21/17 14:33 ; Admin Dose 100 MLS/HR; Start 05/21/17 at 12:00 Vancomycin HCl/ Sodium Chloride (Vancocin/NS) 250 ml @ 83.333 mls/ hr Q48H IVPB ; Start 05/23/17 at 13:00 Ibuprofen 600 mg 600 mg TID PO Last administered on 05/21/17 21:42; Admin Dose 600 MG; Start 05/21/17 at 21:00; Status Future Hold Norepinephrine/ Dextrose (Levophed/D5W) 500 ml @ 1.87 mls/hr TITRATE IV Last administered on 05/22/17 10:38; Admin Dose 3.75 MLS/HR; Start 05/22/17 at 07:00 Assessment/Plan Chief Complaint/Hosp Course 86 yo male admitted with delirium, urosepsis with respiratory failure overnight requiring intubation. 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
--- NOTE | 2017-05-22 11:41 | PN ---
Date/Time of Note Date/Time of Note DATE: 05/22/17 TIME: 11:40 Assessment/Plan VTE Prophylaxis VTE Prophylaxis Intervention: other Lines/Catheters IV Catheter Type (from Nrs): Saline Lock Urinary Cath still in place: Yes Reason Cath still needed: skin wounds contaminated by urine Assessment/Plan Chief Complaint/Hosp Course 1) UTI/sepsis - intravenous antibiotics 2) respiratory failure - on ventilator - monitor, wean as able 3) diabetes - monitor blood sugar Problems: Subjective 24 Hr Interval Summary Free Text/Dictation Patient remain sedated, on ventilator Exam/Review of Systems Vital Signs Vitals Vital Signs Date Time Temp Pulse Resp B/P Pulse Ox O2 Delivery O2 Flow Rate FiO2 05/22/17 11:30 82 21 100 40 05/22/17 06:00 105/64 05/22/17 00:00 98.6 05/21/17 10:00 Mechanical Ventilator 05/21/17 05:00 4.0 Intake and Output 05/21/17 05/21/17 05/22/17 15:00 23:00 07:00 Intake Total 1441.3 ml 425.4 ml 465.5 ml Output Total 210 ml 270 ml 150 ml Balance 1231.3 ml 155.4 ml 315.5 ml Exam Constitutional: well developed Head: atraumatic, normocephalic Neck: supple Respiratory: diminished breath sounds Cardiovascular: regular rate and rhythm Gastrointestinal: non-tender, soft Extremities: normal pulses Results Result Diagram: 05/22/17 0450 05/22/17 0450 Results 24 hrs Laboratory Tests Test 05/21/17 14:13 05/21/17 17:29 05/21/17 20:56 05/21/17 23:00 Bedside Glucose 282 H 256 H 220 Blood Gas Specimen Source Blood arterial Arterial Blood Date Drawn 05/21/2017 11:45:37 PM Arterial Blood pH (Temp corrected) 7.378 Arterial Blood pCO2 (Temp correct) 30.7 L Arterial Blood pO2 (Temp corrected) 188.5 H Arterial Blood HCO3 17.7 L Arterial Blood Base Excess -6.5 L Arterial Blood Oxygen Saturation 98.7 Kevin Test ACCEPTAB Arterial Blood Gas Puncture Site Left Radial Arterial Blood Carboxyhemoglobin 0.3 Arterial Blood Methemoglobin 0.4 Blood Gas A-a O2 Differential 277.6 H Oxyhemoglobin Percent 98.0 Total Hemoglobin 10.5 L Blood Gas Temperature 37.0 Blood Gas Respiration Rate 14.0 Blood Gas Modality VENT - AC FiO2 70.0 Blood Gas Tidal Volume 500.0 Blood Gas High PEEP Setting 5.0 Blood Gas Low PEEP Setting 5.0 Blood Gas Critical Value Read Back leandra Blood Gas Notified Whom [email or web address] Blood Gas Notified Time 05/21/2017 11:54:24 PM Test 05/22/17 00:40 05/22/17 04:50 05/22/17 05:05 05/22/17 07:00 Bedside Glucose 201 175 White Blood Count 9.1 # Red Blood Count 2.89 L Hemoglobin 8.6 L Hematocrit 27.9 L Mean Corpuscular Volume 96.5 Mean Corpuscular Hemoglobin 29.8 Mean Corpuscular Hemoglobin Concent 30.8 L Red Cell Distribution Width 17.2 H Platelet Count 127 #L Mean Platelet Volume 12.3 H Neutrophils % 62.3 Lymphocytes % 21.1 Monocytes % 13.8 H Eosinophils % 2.3 Basophils % 0.3 Nucleated Red Blood Cells % 0.0 Neutrophils # 5.7 Lymphocytes # 1.9 Monocytes # 1.3 H Eosinophils # 0.2 Basophils # 0.0 Nucleated Red Blood Cells # 0.0 Sodium Level 152 #H Potassium Level 3.8 Chloride Level 118 H Carbon Dioxide Level 21 Anion Gap 17 H Blood Urea Nitrogen 37 #H Creatinine 2.48 #H Glucose Level 185 Calcium Level 8.3 L Blood Gas Specimen Source Blood arterial Arterial Blood Date Drawn 05/22/2017 7:50:29 AM Arterial Blood pH (Temp corrected) 7.384 Arterial Blood pCO2 (Temp correct) 29.7 L Arterial Blood pO2 (Temp corrected) 96.5 H Arterial Blood HCO3 17.3 L Arterial Blood Base Excess -6.7 L Arterial Blood Oxygen Saturation 96.4 Kevin Test ACCEPTAB Arterial Blood Gas Puncture Site Right Radial Arterial Blood Carboxyhemoglobin 0.2 Arterial Blood Methemoglobin 0.3 Blood Gas A-a O2 Differential 154.5 H Oxyhemoglobin Percent 95.9 Total Hemoglobin 10.2 L Blood Gas Temperature 37.0 Blood Gas Respiration Rate 14.0 Blood Gas Actual Respiration Rate 22 Blood Gas Modality VENT - AC FiO2 40.0 Blood Gas Tidal Volume 500.0 Blood Gas High PEEP Setting 5.0 Blood Gas Notified Whom TM Blood Gas Notified Time 05/22/2017 8:00:08 AM Test 05/22/17 08:58 Bedside Glucose 160 Medications Medications Current Medications Sodium Chloride (NS) 1,000 ml @ 75 mls/hr [id number] IV Last administered on 05/21 20:55; Admin Dose 50 MLS/HR; Start 05/20/17 at 04:36 Ondansetron HCl (Zofran Inj) 4 mg Q6H PRN IV NAUSEA AND/OR VOMITING; Start at 05:00 Acetaminophen (Tylenol Supp) 650 mg Q6H PRN [place] PAIN LEVEL 1-3 OR FEVER Last administered on 05/20/17 07:10; Admin Dose 650 MG; Start 05/20/17 at 05:00 Pantoprazole (Protonix Iv) 40 mg DAILY@06 IV Last administered on 05/22/17 05: 11; Admin Dose 40 MG; Start 05/20/17 at 06:00 Heparin Sodium (Porcine) (Heparin (5000 Units/0.5 ml)) 5,000 unit Q8 SC Last administered on 05/22/17 05:13; Admin Dose 5,000 UNIT; Start 05/20/17 at 06:00 Diagnostic Test (Pha) (Accu-Chek) 1 ea 02 XX ; Start 05/21/17 at 02:00 Insulin Aspart (Novolog Insulin Pen) NOVOLOG *MILD* ALGORI... Q4 SC Last administered on 05/22/17 09:23; Admin Dose 1 UNIT; Start 05/20/17 at 09:00 Hydralazine HCl (Apresoline) 10 mg Q6H PRN IV ELEVATED BLOOD PRESSURE Last administered on 05/20/17 18:01; Admin Dose 10 MG; Start 05/20/17 at 08:30 Miscellaneous Information 1 ea NOTE XX ; Start 05/20/17 at 09:30 Glucose (Glutose) 15 gm Q15M PRN PO DECREASED GLUCOSE; Start 05/20/17 at 09:30 Glucose (Glutose) 22.5 gm Q15M PRN PO DECREASED GLUCOSE; Start 05/20/17 at 09: 30 Dextrose (D50w Syringe) 25 ml Q15M PRN IV DECREASED GLUCOSE; Start 05/20/17 at 09:30 Dextrose (D50w Syringe) 50 ml Q15M PRN IV DECREASED GLUCOSE; Start 05/20/17 at 09:30 Glucagon (Glucagen) 1 mg Q15M PRN IM DECREASED GLUCOSE; Start 05/20/17 at 09:30 Glucose (Glutose) 15 gm Q15M PRN BUCCAL DECREASED GLUCOSE; Start 05/20/17 at 09 :30 Acetaminophen (Tylenol Tab) 325 mg Q4H PRN PO pain; Start 05/20/17 at 19:30 Aspirin (Halfprin) 81 mg DAILY PO ; Start 05/21/17 at 09:00 Baclofen (Lioresal) 10 mg TID PO Last administered on 05/22/17 09:23; Admin Dose 10 MG; Start 05/20/17 at 21:00 Carvedilol (Coreg) 3.125 mg BID PO ; Start 05/20/17 at 21:00 Colchicine (Colchicine) 0.6 mg TID PO ; Start 05/20/17 at 21:00; Status UNV Docusate Sodium (Colace) 100 mg DAILY PO ; Start 05/21/17 at 09:00 Ferrous Sulfate (Slow Fe) 282 mg DAILY PO ; Start 05/21/17 at 09:00 Furosemide (Lasix) 40 mg DAILY PO ; Start 05/21/17 at 09:00; Status Future Hold Hydroxyzine HCl (Atarax) 25 mg Q6H PRN PO agitation; Start 05/20/17 at 19:30 Metoclopramide HCl (Reglan) 5 mg Q8H PRN PO nausea; Start 05/20/17 at 19:30 Terazosin HCl (Hytrin) 2 mg DAILY PO ; Start 05/21/17 at 09:00 Amitriptyline HCl (Elavil) 10 mg QHS PO Last administered on 05/21/17 21:42; Admin Dose 10 MG; Start 05/20/17 at 21:00 Lactulose 100 ml 100 ml Q8H CO Last administered on 05/22/17 05:06; Admin Dose 100 ML; Start 05/21/17 at 12:00 Propofol (Diprivan) 100 ml @ 3.3 mls/hr Q12H IV Last administered on 05/22/17 07:07; Admin Dose 9.9 MLS/HR; Start 05/21/17 at 09:30 Insulin Glargine (Lantus) 17 unit DAILY@08 SC Last administered on 05/22/17 09: 22; Admin Dose 17 UNIT; Start 05/22/17 at 08:00 Insulin Aspart NOVOLOG *MILD* ALGORI... Q4 SC Last administered on 05/22/17 05: 08; Admin Dose 1 UNIT; Start 05/21/17 at 13:00 Cefepime HCl 50 ml @ 100 mls/hr Q24H IVPB Last administered on 05/21/17 14:33 ; Admin Dose 100 MLS/HR; Start 05/21/17 at 12:00 Vancomycin HCl/ Sodium Chloride (Vancocin/NS) 250 ml @ 83.333 mls/ hr Q48H IVPB ; Start 05/23/17 at 13:00 Ibuprofen 600 mg 600 mg TID PO Last administered on 05/21/17 21:42; Admin Dose 600 MG; Start 05/21/17 at 21:00; Status Future Hold Norepinephrine/ Dextrose (Levophed/D5W) 500 ml @ 1.87 mls/hr TITRATE IV Last administered on 05/22/17 10:38; Admin Dose 3.75 MLS/HR; Start 05/22/17 at 07:00 ZAFAR ROQUE May 22, 2017 11:41
[2017-05-22] MEDS: CEFEPIME 2GM/50 ML (PMX) 50 ML IVPB SCH (12:01)
[2017-05-22] MEDS: SOD CHLORIDE 0.9% 1,000 ML IV SCH (13:53)
[2017-05-22 15:00] LABS: MICROALBUMIN 44.8 mg/dL
[2017-05-22] MEDS ORDERED: LIDOCAINE 1% (MPF) 5 ML VIAL SC ONE (19:30)
[2017-05-22] MEDS: AMITRIPTYLINE 10 MG TAB PO SCH (21:00)
[2017-05-22] MEDS ORDERED: SOD CHLORIDE 0.9% 500 ML IV ONE (23:30)
[2017-05-22] MEDS ORDERED: PHENYLephrine 40 MG in DEXTROSE 5% 496 ML IV SCH (23:45)
[2017-05-23] VITALS (95 sets, daily range): BP systolic 74–185; BP diastolic 29–152; PULSE 57–99; RESP 14–28
[2017-05-23] MEDS: INSULIN ASPART [NOVOLOG] 3 ML PEN SC SCH ×8 (01:00→21:35)
[2017-05-23] MEDS: ACCU-CHEK XX SCH (02:00)
[2017-05-23] MEDS: PROPOFOL 100 ML IV SCH ×3 (02:07→12:19)
[2017-05-23] MEDS: SOD CHLORIDE 0.9% 1,000 ML IV SCH ×2 (02:09→04:09)
[2017-05-23] MEDS: LACTULOSE ENEMA 1,000 ML BTL PR SCH ×3 (04:00→21:36)
[2017-05-23] MEDS: PANTOPRAZOLE 40 MG INJ IV SCH (06:00)
[2017-05-23] MEDS: HEPARIN 5,000 UNIT/0.5 ML VIAL SC SCH ×3 (06:09→21:48)
[2017-05-23 06:45] LABS: ABNORMAL IP MESSAGE 1; BASOPHIL # 0.1 10^3/ul (0.0-0.1); BASOPHILS % 0.6 % (0.0-2.0); EOSINOPHILS # 0.5 10^3/ul (0.0-0.5); EOSINOPHILS % 2.7 % (0.0-7.0); HEMATOCRIT 31.2 % (42.0-52.0); HEMOGLOBIN 9.5 g/dl (14.0-18.0); LYMPHOCYTES # 2.7 10^3/ul (0.8-2.9); LYMPHOCYTES % 15.7 % (15.0-51.0); MEAN CORPUSCULAR HEMOGLOBIN 29.7 pg (29.0-33.0); MEAN CORPUSCULAR HGB CONC 30.4 g/dl (32.0-37.0); MEAN CORPUSCULAR VOLUME 97.5 fl (82.0-101.0); MEAN PLATELET VOLUME 12.6 fl (7.4-10.4); MONOCYTE # 2.1 10^3/ul (0.3-0.9); MONOCYTES % 12.2 % (0.0-11.0); NEUTROPHIL # 11.6 10^3/ul (1.6-7.5); NEUTROPHILS % 67.9 % (39.0-77.0); NUCLEATED RED BLOOD CELLS% 0.2 /100WBC (0.0-0.0); PLATELET COUNT 201 10^3/UL (140-415); POSITIVE DIFF @See below; RED CELL DISTRIBUTION WIDTH 17.7 % (11.5-14.5); WHITE BLOOD COUNT 17.1 10^3/ul (4.8-10.8)
[2017-05-23 07:14] LABS: CALCIUM 8.1 mg/dl (8.4-10.2); CREATININE 2.72 mg/dl (0.61-1.24); MAGNESIUM 1.9 mg/dl (1.7-2.5); PHOSPHORUS 4.1 mg/dl (2.5-4.9)
--- NOTE | 2017-05-23 07:16 | RADRPT ---
PROCEDURE: XR Chest. CLINICAL INDICATION: CHF TECHNIQUE: An AP view of the chest was obtained. COMPARISON: Chest x-ray dated 05/22/2017 FINDINGS: The endotracheal tube tip is approximately 2.1 cm above the makeda. The tip of the enteric tube ex tends below the left diaphragm. Lung volumes are low. There is prominence of the interstitial and central pulmonary vascular leonor ngs with small bilateral pleural effusions. No focal airspace opacification or pneumothorax is see n. The cardiomediastinal silhouette is mildly enlarged . Calcifications are seen within the aortic arch. The osseous structures demonstrate senescent changes. IMPRESSION: 1. Findings suggestive of pulmonary vascular congestion with small bilateral pleural effusions. No significant interval change. 2. Low lung volumes. 3. Mild cardiomegaly and aortic atherosclerosis. 4. Tubes and lines, as described above. RPTAT: HH .Maura Hopper MD, MD Date Time Electronically viewed and signed by .Maura Hopper MD, on 05/23/2017 07:15 .G/
[2017-05-23] MEDS: INSULIN GLARGINE [LANtus] 3 ML PEN SC SCH (08:04)
--- NOTE | 2017-05-23 08:48 | PN ---
DATE: 05/23/2017 SUBJECTIVE DATA: The patient remains critically ill, on full ventilatory support. Remains on IV pressors. No other events noted. OBJECTIVE DATA: VITAL SIGNS: Blood pressure is 100/63, respirations 27, pulse 79, temperature 98.6. HEENT: Head is normocephalic. NECK: Supple. HEART: Regular rate. LUNGS: Show diminished breath sounds at the base. ABDOMEN: Soft, nontender to palpation. No rebound or guarding. EXTREMITIES: Negative for clubbing, cyanosis, no edema. DERMATOLOGIC: Clean. No rashes. MUSCULOSKELETAL: No joint effusion. NEUROLOGIC: No change in exam. MEDICATIONS: Reviewed. LABORATORY AND DIAGNOSTIC DATA: Shows a sodium 151, potassium 4.2, chloride 119, bicarb 17, BUN 39, creatinine 2.79, glucose 237. White count 17.1, hemoglobin 9.5, crit 31.2, platelet count is 201. Chest x-ray was reviewed. It shows pulmonary vascular congestion, bilateral pleural effusions. Urine cultures were positive. ASSESSMENT AND PLAN: 1. Nonoliguric acute kidney injury on top of chronic kidney disease, stage 3B/4. Previous baseline creatinine 12.3 mg/dL. Etiology of acute kidney injury secondary is secondary to acute tubular necrosis due to sepsis, hemodynamics, shock, possible nonsteroidal anti-inflammatory use. The patient continues to be in injury phase of acute tubular necrosis. His renal function continues to decline. At this point, continue current treatment plan. Continue IV fluids, pressor support. Maintain mean arterial pressure of 65. Continue antibiotic therapy. 2. Chronic kidney disease secondary to diabetes, hypertension. The patient is currently in acute kidney as stated above. Continue medical management. 3. Hypernatremia. The patient has a free water deficit of approximately 2.5 L. We will decrease free water flushes 400 cc every 4 hours. 4. Mineral bone disorder. Monitor calcium and phosphorus levels. 5. Anemia. Monitor H and H levels. 6. Septic shock secondary to urinary tract infection. Urine cultures are positive. Continue current medical management. Continue intravenous fluids, pressor support, antibiotics. 7. Ventilatory-dependent respiratory failure. Vent settings reviewed. ABGs reviewed. Follow up with Pulmonary. 8. Acute encephalopathy, etiology is toxic metabolic. Continue to monitor. 9. Diabetes. Continue Accu-Cheks and insulin sliding scale. 10. Hypertension. Continue current blood pressure regimen. 11. Benign prostatic hyperplasia. Continue medical management. Dictated By: Jl Pizano DO /vincent/july /Document#: [id number]
[2017-05-23] MEDS: DOCUSATE SODIUM 250 MG CAP PO SCH (09:00)
--- NOTE | 2017-05-23 09:22 | PN ---
Date/Time of Note Date/Time of Note DATE: 05/23/17 TIME: 09:20 Assessment/Plan VTE Prophylaxis VTE Prophylaxis Intervention: other Lines/Catheters IV Catheter Type (from Nrs): Saline Lock Urinary Cath still in place: Yes Reason Cath still needed: urinary retention Assessment/Plan Chief Complaint/Hosp Course 1) UTI/sepsis - intravenous antibiotics 2) respiratory failure - on ventilator - monitor, wean as able 3) diabetes - monitor blood sugar Problems: Subjective 24 Hr Interval Summary Free Text/Dictation Patient remain sedated, intubated, on low dose vasopressors and dipravan for sedation Exam/Review of Systems Vital Signs Vitals Vital Signs Date Time Temp Pulse Resp B/P Pulse Ox O2 Delivery O2 Flow Rate FiO2 05/23/17 08:00 86 05/23/17 07:45 97/49 96 05/23/17 05:20 27 40 05/23/17 04:00 98.3 Mechanical Ventilator 05/21/17 05:00 4.0 Intake and Output 05/22/17 05/22/17 05/23/17 15:00 23:00 07:00 Intake Total 1151.20 ml 1230.70 ml 146 ml Output Total 170 ml 60 ml Balance 981.20 ml 1170.70 ml 146 ml Exam Constitutional: well developed Head: atraumatic, normocephalic Neck: supple Respiratory: diminished breath sounds Cardiovascular: regular rate and rhythm Gastrointestinal: non-tender, soft Extremities: normal pulses Results Result Diagram: 05/23/17 0540 05/23/17 0540 Results 24 hrs Laboratory Tests Test 05/22/17 17:58 05/22/17 21:08 05/23/17 04:20 05/23/17 05:40 Bedside Glucose 203 212 215 White Blood Count 17.1 #H Red Blood Count 3.20 L Hemoglobin 9.5 L Hematocrit 31.2 L Mean Corpuscular Volume 97.5 Mean Corpuscular Hemoglobin 29.7 Mean Corpuscular Hemoglobin Concent 30.4 L Red Cell Distribution Width 17.7 H Platelet Count 201 # Mean Platelet Volume 12.6 H Neutrophils % 67.9 Lymphocytes % 15.7 Monocytes % 12.2 H Eosinophils % 2.7 Basophils % 0.6 Nucleated Red Blood Cells % 0.2 H Neutrophils # 11.6 H Lymphocytes # 2.7 Monocytes # 2.1 H Eosinophils # 0.5 Basophils # 0.1 Nucleated Red Blood Cells # 0.0 Sodium Level 151 H Potassium Level 4.0 Chloride Level 118 H Carbon Dioxide Level 17 L Anion Gap 20 H Blood Urea Nitrogen 39 H Creatinine 2.72 H Glucose Level 237 H Calcium Level 8.1 L Phosphorus Level 4.1 Magnesium Level 1.9 Test 05/23/17 08:01 Bedside Glucose 264 H Medications Medications Current Medications Sodium Chloride (NS) 1,000 ml @ 75 mls/hr [id number] IV Last administered on 04:09; Admin Dose 75 MLS/HR; Start 05/20/17 at 04:36 Ondansetron HCl (Zofran Inj) 4 mg Q6H PRN IV NAUSEA AND/OR VOMITING; Start at 05:00 Acetaminophen (Tylenol Supp) 650 mg Q6H PRN RI PAIN LEVEL 1-3 OR FEVER Last administered on 05/20/17 07:10; Admin Dose 650 MG; Start 05/20/17 at 05:00 Pantoprazole (Protonix Iv) 40 mg DAILY@06 IV Last administered on 05/23/17 06: 00; Admin Dose 40 MG; Start 05/20/17 at 06:00 Heparin Sodium (Porcine) (Heparin (5000 Units/0.5 ml)) 5,000 unit Q8 SC Last administered on 05/23/17 06:09; Admin Dose 5,000 UNIT; Start 05/20/17 at 06:00 Hydralazine HCl (Apresoline) 10 mg Q6H PRN IV ELEVATED BLOOD PRESSURE Last administered on 05/20/17 18:01; Admin Dose 10 MG; Start 05/20/17 at 08:30 Miscellaneous Information 1 ea NOTE XX ; Start 05/20/17 at 09:30 Glucose (Glutose) 15 gm Q15M PRN PO DECREASED GLUCOSE; Start 05/20/17 at 09:30 Glucose (Glutose) 22.5 gm Q15M PRN PO DECREASED GLUCOSE; Start 05/20/17 at 09: 30 Dextrose (D50w Syringe) 25 ml Q15M PRN IV DECREASED GLUCOSE; Start 05/20/17 at 09:30 Dextrose (D50w Syringe) 50 ml Q15M PRN IV DECREASED GLUCOSE; Start 05/20/17 at 09:30 Glucagon (Glucagen) 1 mg Q15M PRN IM DECREASED GLUCOSE; Start 05/20/17 at 09:30 Glucose (Glutose) 15 gm Q15M PRN BUCCAL DECREASED GLUCOSE; Start 05/20/17 at 09 :30 Acetaminophen (Tylenol Tab) 325 mg Q4H PRN PO pain; Start 05/20/17 at 19:30 Aspirin (Halfprin) 81 mg DAILY PO ; Start 05/21/17 at 09:00 Baclofen (Lioresal) 10 mg TID PO Last administered on 05/22/17 21:03; Admin Dose 10 MG; Start 05/20/17 at 21:00 Carvedilol (Coreg) 3.125 mg BID PO Last administered on 05/22/17 21:06; Admin Dose 3.125 MG; Start 05/20/17 at 21:00 Colchicine (Colchicine) 0.6 mg TID PO ; Start 05/20/17 at 21:00; Status UNV Docusate Sodium (Colace) 100 mg DAILY PO ; Start 05/21/17 at 09:00 Ferrous Sulfate (Slow Fe) 282 mg DAILY PO ; Start 05/21/17 at 09:00 Furosemide (Lasix) 40 mg DAILY PO ; Start 05/21/17 at 09:00; Status Future Hold Hydroxyzine HCl (Atarax) 25 mg Q6H PRN PO agitation; Start 05/20/17 at 19:30 Metoclopramide HCl (Reglan) 5 mg Q8H PRN PO nausea; Start 05/20/17 at 19:30 Terazosin HCl (Hytrin) 2 mg DAILY PO ; Start 05/21/17 at 09:00 Amitriptyline HCl (Elavil) 10 mg QHS PO Last administered on 05/21/17 21:42; Admin Dose 10 MG; Start 05/20/17 at 21:00 Lactulose 100 ml 100 ml Q8H RI Last administered on 05/23/17 04:00; Admin Dose 100 ML; Start 05/21/17 at 12:00 Propofol (Diprivan) 100 ml @ 3.3 mls/hr Q12H IV Last administered on 05/23/17 07:39; Admin Dose 12.487 MLS/HR; Start 05/21/17 at 09:30 Insulin Glargine (Lantus) 17 unit DAILY@08 SC Last administered on 05/23/17 08: 04; Admin Dose 17 UNIT; Start 05/22/17 at 08:00 Insulin Aspart NOVOLOG *MILD* ALGORI... Q4 SC Last administered on 05/22/17 18: 00; Admin Dose 2 UNIT; Start 05/21/17 at 13:00 Cefepime HCl 50 ml @ 100 mls/hr Q24H IVPB Last administered on 05/22/17 12:01 ; Admin Dose 100 MLS/HR; Start 05/21/17 at 12:00 Vancomycin HCl/ Sodium Chloride (Vancocin/NS) 250 ml @ 83.333 mls/ hr Q48H IVPB ; Start 05/23/17 at 13:00 Ibuprofen 600 mg 600 mg TID PO Last administered on 05/21/17 21:42; Admin Dose 600 MG; Start 05/21/17 at 21:00; Status Future Hold Norepinephrine 16 mg/Dextrose 500 ml @ 1.87 mls/hr TITRATE IV Last administered on 05/23/17 08:06; Admin Dose 37.5 MLS/HR; Start 05/22/17 at 07:00 Phenylephrine HCl/ Dextrose (Farhan-Syneph/D5W) 500 ml @ 75 mls/hr TITRATE IV ; Start 05/22/17 at 23:45 ZAFAR ROQUE May 23, 2017 09:21
[2017-05-23] MEDS: TERAZOSIN 2 MG CAP PO SCH (09:44)
[2017-05-23] MEDS: ASPIRIN (EC) 81 MG TAB PO SCH (09:44)
[2017-05-23] MEDS: FERROUS SULFATE (SR) 142 MG TAB PO SCH (09:45)
[2017-05-23] MEDS: BACLOFEN 10 MG TAB PO SCH ×3 (09:47→21:49)
[2017-05-23] MEDS ORDERED: LORAZEPAM 2 MG INJ ONE (10:50)
[2017-05-23] MEDS ORDERED: LORAZEPAM 2 MG INJ IV ONE (11:00)
--- NOTE | 2017-05-23 11:57 | RADRPT ---
PROCEDURE: MR Brain without contrast. CLINICAL INDICATION: Encephalopathy TECHNIQUE: An MRI of the brain was performed on a 1.5 lizabeth scanner utilizing the following sequen thang: Sagittal T1 weighted, axial T2 weighted, axial FLAIR, coronal GRE, and axial diffusion weighted with ADC mapping. COMPARISON: CT brain 05/20/2017 FINDINGS: No evidence of restricted diffusion to suggest acute or early subacute ischemic infarction. There i s no evidence of intracranial hemorrhage, mass effect, or midline shift. No extra-axial fluid collec tions are seen. No hypointense signal abnormalities are seen on the GRE images to suggest the presence of blood degr adation products. Diffuse signal hyperintensity within the left frontal lobe and insula with mild en cephalomalacia of the left middle frontal gyrus compatible with remote ischemic infarction. Remote i schemic infarct in the right superior precentral gyrus Patchy and confluent periventricular and subc ortical white matter T2 signal hyperintensity foci compatible with sequelae of chronic microvascular ischemic disease. Remote lacunar infarcts in the cerebellar hemispheres bilaterally. The ventricles and subarachnoid spaces are markedly prominent compatible with a central cerebral and cerebellar volume loss. Mucosal thickening throughout the ethmoid air cells and maxillary sinuses bilaterally compatible with mild chronic inflammatory changes. Fluid signal within the mastoid air cells compatible with bilateral retained secretions or inflammatory change. The posterior fossa contents, brainstem, seventh - eighth cranial nerve complexes, pituitary axis, o rbits, paranasal sinuses, and mastoid air cells are otherwise unremarkable. Normal flow voids are visible in the proximal intracranial arteries and dural sinuses, indicating pa tency. IMPRESSION: 1. No acute or early subacute ischemic infarction or intracranial hemorrhage. 2. 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 Several remote lacunar infarcts in the cerebellar hemispheres bilaterally. 3. Marked chronic microvascular ischemic changes. 4. Moderate to marked central cerebral and cerebellar volume loss. RPTAT:AAJJ Physician Edenilson Date Time Electronically viewed and signed by Physician Edenilson on 05/23/2017 11:57 RONIT/
[2017-05-23] MEDS: CEFEPIME 2GM/50 ML (PMX) 50 ML IVPB SCH (12:43)
--- NOTE | 2017-05-23 12:53 | CONS ---
Date/Time of Note Date/Time of Note DATE: 05/23/17 TIME: 12:50 Assessment/Plan Assessment/Plan Additional Assessment/Plan Chest x-ray was reviewed from today which is essentially unremarkable except for perhaps scattered minimal patchy bilateral alveolar infiltrates. Endotracheal tube is at an adequate level. MRI of the brain was also reviewed from today which is showing chronic appearing microvascular changes with volume loss. No acute findings reported. Enough ventilator setting; AC of 14, tidal volume 500, PEEP of 5, 40% FiO2. Assessment recommendations; next 1. Patient admitted with sepsis due to severe UTI. 2. Advanced dementia. 3. Acute renal failure. 4. History of hypertension, diabetes, and CHF. 5. Poor mental status. Continue current supportive care. Prognosis is guarded. Consultation Date/Type/Reason Admit Date/Time May 20, 2017 at 02:37 Initial Consult Date 05/21/17 Type of Consultation: pulmonary/critical Referring Provider: FELIX MOISE 24 HR Interval Summary Free Text/Dictation Patient condition remains critical. Remains essentially unresponsive. But remains awake. General exam; elderly male, orally intubated, awake but unresponsive to any commands. Currently in no distress. Exam/Review of Systems Vital Signs Vitals Vital Signs Date Time Temp Pulse Resp B/P Pulse Ox O2 Delivery O2 Flow Rate FiO2 05/23/17 10:30 86 18 105/56 96 Mechanical Ventilator 05/23/17 08:00 98.2 05/23/17 05:20 40 05/21/17 05:00 4.0 Intake and Output 05/22/17 05/22/17 05/23/17 15:00 23:00 07:00 Intake Total 1151.20 ml 1230.70 ml 146 ml Output Total 170 ml 60 ml Balance 981.20 ml 1170.70 ml 146 ml Exam HEENT exam; supple neck, positive JVD. No lymphadenopathy. Midline trachea. No thyromegaly. Orally intubated. Patient is edentulous. Has bilateral intraocular lens implants. Chest exam; diminished but clear vessel. S1-S2 audible, no murmurs. Regular rhythm. Abdomen exam; soft, nondistended. Protuberant. Bowel sounds audible. No organomegaly. Extremity exam; no peripheral edema. [employer] exam; patient is awake but unresponsive to any commands. Results Result Diagram: 05/23/1740 05/23/17 0540 Results 24 hrs Laboratory Tests Test 05/22/17 17:58 05/22/17 21:08 05/23/17 04:20 05/23/17 05:40 Bedside Glucose 203 212 215 White Blood Count 17.1 #H Red Blood Count 3.20 L Hemoglobin 9.5 L Hematocrit 31.2 L Mean Corpuscular Volume 97.5 Mean Corpuscular Hemoglobin 29.7 Mean Corpuscular Hemoglobin Concent 30.4 L Red Cell Distribution Width 17.7 H Platelet Count 201 # Mean Platelet Volume 12.6 H Neutrophils % 67.9 Lymphocytes % 15.7 Monocytes % 12.2 H Eosinophils % 2.7 Basophils % 0.6 Nucleated Red Blood Cells % 0.2 H Neutrophils # 11.6 H Lymphocytes # 2.7 Monocytes # 2.1 H Eosinophils # 0.5 Basophils # 0.1 Nucleated Red Blood Cells # 0.0 Sodium Level 151 H Potassium Level 4.0 Chloride Level 118 H Carbon Dioxide Level 17 L Anion Gap 20 H Blood Urea Nitrogen 39 H Creatinine 2.72 H Glucose Level 237 H Calcium Level 8.1 L Phosphorus Level 4.1 Magnesium Level 1.9 Test 05/23/17 08:01 05/23/17 09:39 Bedside Glucose 264 H 270 H Medications Medications Current Medications Sodium Chloride (NS) 1,000 ml @ 75 mls/hr [id number] IV Last administered on 04:09; Admin Dose 75 MLS/HR; Start 05/20/17 at 04:36 Ondansetron HCl (Zofran Inj) 4 mg Q6H PRN IV NAUSEA AND/OR VOMITING; Start at 05:00 Acetaminophen (Tylenol Supp) 650 mg Q6H PRN [place] PAIN LEVEL 1-3 OR FEVER Last administered on 05/20/17 07:10; Admin Dose 650 MG; Start 05/20/17 at 05:00 Pantoprazole (Protonix Iv) 40 mg DAILY@06 IV Last administered on 05/23/17 06: 00; Admin Dose 40 MG; Start 05/20/17 at 06:00 Heparin Sodium (Porcine) (Heparin (5000 Units/0.5 ml)) 5,000 unit Q8 SC Last administered on 05/23/17 06:09; Admin Dose 5,000 UNIT; Start 05/20/17 at 06:00 Hydralazine HCl (Apresoline) 10 mg Q6H PRN IV ELEVATED BLOOD PRESSURE Last administered on 05/20/17 18:01; Admin Dose 10 MG; Start 05/20/17 at 08:30 Miscellaneous Information 1 ea NOTE XX ; Start 05/20/17 at 09:30 Glucose (Glutose) 15 gm Q15M PRN PO DECREASED GLUCOSE; Start 05/20/17 at 09:30 Glucose (Glutose) 22.5 gm Q15M PRN PO DECREASED GLUCOSE; Start 05/20/17 at 09: 30 Dextrose (D50w Syringe) 25 ml Q15M PRN IV DECREASED GLUCOSE; Start 05/20/17 at 09:30 Dextrose (D50w Syringe) 50 ml Q15M PRN IV DECREASED GLUCOSE; Start 05/20/17 at 09:30 Glucagon (Glucagen) 1 mg Q15M PRN IM DECREASED GLUCOSE; Start 05/20/17 at 09:30 Glucose (Glutose) 15 gm Q15M PRN BUCCAL DECREASED GLUCOSE; Start 05/20/17 at 09 :30 Acetaminophen (Tylenol Tab) 325 mg Q4H PRN PO pain; Start 05/20/17 at 19:30 Aspirin (Halfprin) 81 mg DAILY PO Last administered on 05/23/17 09:44; Admin Dose 81 MG; Start 05/21/17 at 09:00 Baclofen (Lioresal) 10 mg TID PO Last administered on 05/23/17 09:47; Admin Dose 10 MG; Start 05/20/17 at 21:00 Carvedilol (Coreg) 3.125 mg BID PO Last administered on 05/23/17 09:46; Admin Dose 3.125 MG; Start 05/20/17 at 21:00 Colchicine (Colchicine) 0.6 mg TID PO ; Start 05/20/17 at 21:00; Status UNV Docusate Sodium (Colace) 100 mg DAILY PO ; Start 05/21/17 at 09:00 Ferrous Sulfate (Slow Fe) 282 mg DAILY PO Last administered on 05/23/17 09:45; Admin Dose 282 MG; Start 05/21/17 at 09:00 Furosemide (Lasix) 40 mg DAILY PO ; Start 05/21/17 at 09:00; Status Future Hold Hydroxyzine HCl (Atarax) 25 mg Q6H PRN PO agitation; Start 05/20/17 at 19:30 Metoclopramide HCl (Reglan) 5 mg Q8H PRN PO nausea; Start 05/20/17 at 19:30 Terazosin HCl (Hytrin) 2 mg DAILY PO Last administered on 05/23/17 09:44; Admin Dose 2 MG; Start 05/21/17 at 09:00 Amitriptyline HCl (Elavil) 10 mg QHS PO Last administered on 05/21/17 21:42; Admin Dose 10 MG; Start 05/20/17 at 21:00 Lactulose 100 ml 100 ml Q8H VT Last administered on 05/23/17 04:00; Admin Dose 100 ML; Start 05/21/17 at 12:00 Propofol (Diprivan) 100 ml @ 3.3 mls/hr Q12H IV Last administered on 05/23/17 12:19; Admin Dose 3.3 MLS/HR; Start 05/21/17 at 09:30 Insulin Glargine (Lantus) 17 unit DAILY@08 SC Last administered on 05/23/17 08: 04; Admin Dose 17 UNIT; Start 05/22/17 at 08:00 Insulin Aspart NOVOLOG *MILD* ALGORI... Q4 SC Last administered on 05/23/17 09: 43; Admin Dose 4 UNIT; Start 05/21/17 at 13:00 Cefepime HCl 50 ml @ 100 mls/hr Q24H IVPB Last administered on 05/23/17 12:43 ; Admin Dose 100 MLS/HR; Start 05/21/17 at 12:00 Vancomycin HCl/ Sodium Chloride (Vancocin/NS) 250 ml @ 83.333 mls/ hr Q48H IVPB ; Start 05/23/17 at 13:00 Ibuprofen 600 mg 600 mg TID PO Last administered on 05/21/17 21:42; Admin Dose 600 MG; Start 05/21/17 at 21:00; Status Future Hold Norepinephrine 16 mg/Dextrose 500 ml @ 1.87 mls/hr TITRATE IV Last administered on 05/23/17 08:06; Admin Dose 37.5 MLS/HR; Start 05/22/17 at 07:00 Phenylephrine HCl/ Dextrose (Farhan-Syneph/D5W) 500 ml @ 75 mls/hr TITRATE IV ; Start 05/22/17 at 23:45 ART ESTEVEZ May 23, 2017 12:53
[2017-05-23] MEDS ORDERED: VANCOMYCIN 1.5 GM in SOD CHLORIDE 0.9% 250 ML IVPB SCH (13:00)
--- NOTE | 2017-05-23 15:56 | CONS ---
Date/Time of Note Date/Time of Note DATE: 05/23/17 TIME: 15:54 Consultation Date/Type/Reason Admit Date/Time May 20, 2017 at 02:37 Date of Consultation: May 23, 2017 Type of Consultation: ID Reason for Consultation Antibiotic management in patient who is in septic shock,with uti and positive BCs. On Vanco and cefepime. Repeat cultures Exam/Review of Systems Vital Signs Vitals Vital Signs Date Time Temp Pulse Resp B/P Pulse Ox O2 Delivery O2 Flow Rate FiO2 05/23/17 13:15 81 20 96 40 05/23/17 10:30 105/56 Mechanical Ventilator 05/23/17 08:00 98.2 05/21/17 05:00 4.0 Intake and Output 05/22/17 05/22/17 05/23/17 15:00 23:00 07:00 Intake Total 1151.20 ml 1230.70 ml 146 ml Output Total 170 ml 60 ml 30 ml Balance 981.20 ml 1170.70 ml 116 ml Results Result Diagram: 05/23/17 0540 05/23/17 0540 Results 24 hrs Laboratory Tests Test 05/22/17 17:58 05/22/17 21:08 05/23/17 04:20 05/23/17 05:40 Bedside Glucose 203 212 215 White Blood Count 17.1 #H Red Blood Count 3.20 L Hemoglobin 9.5 L Hematocrit 31.2 L Mean Corpuscular Volume 97.5 Mean Corpuscular Hemoglobin 29.7 Mean Corpuscular Hemoglobin Concent 30.4 L Red Cell Distribution Width 17.7 H Platelet Count 201 # Mean Platelet Volume 12.6 H Neutrophils % 67.9 Lymphocytes % 15.7 Monocytes % 12.2 H Eosinophils % 2.7 Basophils % 0.6 Nucleated Red Blood Cells % 0.2 H Neutrophils # 11.6 H Lymphocytes # 2.7 Monocytes # 2.1 H Eosinophils # 0.5 Basophils # 0.1 Nucleated Red Blood Cells # 0.0 Sodium Level 151 H Potassium Level 4.0 Chloride Level 118 H Carbon Dioxide Level 17 L Anion Gap 20 H Blood Urea Nitrogen 39 H Creatinine 2.72 H Glucose Level 237 H Calcium Level 8.1 L Phosphorus Level 4.1 Magnesium Level 1.9 Test 05/23/17 08:01 05/23/17 09:39 05/23/17 13:36 Bedside Glucose 264 H 270 H 327 H Medications Medications Current Medications Sodium Chloride (NS) 1,000 ml @ 75 mls/hr [id number] IV Last administered on 04:09; Admin Dose 75 MLS/HR; Start 05/20/17 at 04:36 Ondansetron HCl (Zofran Inj) 4 mg Q6H PRN IV NAUSEA AND/OR VOMITING; Start at 05:00 Acetaminophen (Tylenol Supp) 650 mg Q6H PRN [place] PAIN LEVEL 1-3 OR FEVER Last administered on 05/20/17 07:10; Admin Dose 650 MG; Start 05/20/17 at 05:00 Pantoprazole (Protonix Iv) 40 mg DAILY@06 IV Last administered on 05/23/17 06: 00; Admin Dose 40 MG; Start 05/20/17 at 06:00 Heparin Sodium (Porcine) (Heparin (5000 Units/0.5 ml)) 5,000 unit Q8 SC Last administered on 05/23/17 14:04; Admin Dose 5,000 UNIT; Start 05/20/17 at 06:00 Hydralazine HCl (Apresoline) 10 mg Q6H PRN IV ELEVATED BLOOD PRESSURE Last administered on 05/20/17 18:01; Admin Dose 10 MG; Start 05/20/17 at 08:30 Miscellaneous Information 1 ea NOTE XX ; Start 05/20/17 at 09:30 Glucose (Glutose) 15 gm Q15M PRN PO DECREASED GLUCOSE; Start 05/20/17 at 09:30 Glucose (Glutose) 22.5 gm Q15M PRN PO DECREASED GLUCOSE; Start 05/20/17 at 09: 30 Dextrose (D50w Syringe) 25 ml Q15M PRN IV DECREASED GLUCOSE; Start 05/20/17 at 09:30 Dextrose (D50w Syringe) 50 ml Q15M PRN IV DECREASED GLUCOSE; Start 05/20/17 at 09:30 Glucagon (Glucagen) 1 mg Q15M PRN IM DECREASED GLUCOSE; Start 05/20/17 at 09:30 Glucose (Glutose) 15 gm Q15M PRN BUCCAL DECREASED GLUCOSE; Start 05/20/17 at 09 :30 Acetaminophen (Tylenol Tab) 325 mg Q4H PRN PO pain; Start 05/20/17 at 19:30 Aspirin (Halfprin) 81 mg DAILY PO Last administered on 05/23/17 09:44; Admin Dose 81 MG; Start 05/21/17 at 09:00 Baclofen (Lioresal) 10 mg TID PO Last administered on 05/23/17 13:31; Admin Dose 10 MG; Start 05/20/17 at 21:00 Carvedilol (Coreg) 3.125 mg BID PO Last administered on 05/23/17 09:46; Admin Dose 3.125 MG; Start 05/20/17 at 21:00 Colchicine (Colchicine) 0.6 mg TID PO ; Start 05/20/17 at 21:00; Status UNV Docusate Sodium (Colace) 100 mg DAILY PO ; Start 05/21/17 at 09:00 Ferrous Sulfate (Slow Fe) 282 mg DAILY PO Last administered on 05/23/17 09:45; Admin Dose 282 MG; Start 05/21/17 at 09:00 Furosemide (Lasix) 40 mg DAILY PO ; Start 05/21/17 at 09:00; Status Future Hold Hydroxyzine HCl (Atarax) 25 mg Q6H PRN PO agitation; Start 05/20/17 at 19:30 Metoclopramide HCl (Reglan) 5 mg Q8H PRN PO nausea; Start 05/20/17 at 19:30 Terazosin HCl (Hytrin) 2 mg DAILY PO Last administered on 05/23/17 09:44; Admin Dose 2 MG; Start 05/21/17 at 09:00 Amitriptyline HCl (Elavil) 10 mg QHS PO Last administered on 05/21/17 21:42; Admin Dose 10 MG; Start 05/20/17 at 21:00 Lactulose 100 ml 100 ml Q8H SD Last administered on 05/23/17 04:00; Admin Dose 100 ML; Start 05/21/17 at 12:00 Propofol (Diprivan) 100 ml @ 3.3 mls/hr Q12H IV Last administered on 05/23/17 12:19; Admin Dose 3.3 MLS/HR; Start 05/21/17 at 09:30 Insulin Glargine (Lantus) 17 unit DAILY@08 SC Last administered on 05/23/17 08: 04; Admin Dose 17 UNIT; Start 05/22/17 at 08:00 Insulin Aspart NOVOLOG *MILD* ALGORI... Q4 SC Last administered on 05/23/17 13: 46; Admin Dose 5 UNIT; Start 05/21/17 at 13:00 Cefepime HCl 50 ml @ 100 mls/hr Q24H IVPB Last administered on 05/23/17 12:43 ; Admin Dose 100 MLS/HR; Start 05/21/17 at 12:00 Vancomycin HCl/ Sodium Chloride (Vancocin/NS) 250 ml @ 83.333 mls/ hr Q48H IVPB Last administered on 05/23/17 13:48; Admin Dose 83.333 MLS/HR; Start at 13:00 Ibuprofen 600 mg 600 mg TID PO Last administered on 05/21/17 21:42; Admin Dose 600 MG; Start 05/21/17 at 21:00; Status Future Hold Norepinephrine 16 mg/Dextrose 500 ml @ 1.87 mls/hr TITRATE IV Last administered on 05/23/17 08:06; Admin Dose 37.5 MLS/HR; Start 05/22/17 at 07:00 Phenylephrine HCl/ Dextrose (Farhan-Syneph/D5W) 500 ml @ 75 mls/hr TITRATE IV ; Start 05/22/17 at 23:45 AVERY ALLEN MD May 23, 2017 15:56
--- NOTE | 2017-05-23 19:20 | CONS ---
DATE OF ADMISSION: 05/20/2017 DATE OF CONSULTATION: 05/23/2017 REASON FOR CONSULTATION: Antibiotic management. HISTORY OF PRESENT ILLNESS: The patient is an 86-year-old [place] male who was admitted with confusion and encephalopathy and is being seen for antibiotic management. The patient has had altered level of consciousness for 1 week, but worse over the last 12 hours prior to admission which was on 05/20/2017. PAST MEDICAL HISTORY: 1. Encephalopathy, drug induced versus infectious versus metabolic. The urine drug screen was done which was negative. Chest x-ray and urinalysis were negative. 2. Hypertension. 3. Adult-onset diabetes mellitus. 4. Anemia of chronic disease. 5. Benign prostatic hypertrophy. 6. Chronic renal disease with creatinine of 2.2. 7. Gout. 8. Chronic left lower extremity weakness. 9. Status post cholecystectomy. LABORATORY: On admission, patient had a white count of 8.0, H and H of 9.8 and hematocrit 30.1, and platelet count 183,000. BUN and creatinine 36/2.26, random glucose of 279. HOSPITAL COURSE: The patient's chest x-ray, cardiomegaly, pulmonary vascular congestion and bibasilar atelectasis. Chest x- ray from today shows an ET tube, OG tube, Hillman catheter, and peripheral IV. No focal airspace opacifications or pneumothorax. Findings suggestive of pulmonary vascular congestion, small bilateral pleural effusions. No significant interval change. T He patient is doing poorly. He was seen by Dr. Pizano. BUN and creatinine 39/2.79. Today white count is up to 17.1. The patient is in septic shock secondary to urinary tract infection. His urine cultures are positive. He is on IV fluids, pressor support and antibiotics. The patient grew out gram-positive cocci from his blood, which may be contaminant since it is 1/3. He grew out Enterococcus species and E. coli from the urine which the E coli is 40,000-50,000. Enterococcus sensitive to ampicillin, vancomycin, and also to Levaquin. The E coli is sensitive to Levaquin as well. The patient is currently on vancomycin and cefepime. MRI of the brain shows no acute or early subacute ischemic infarction or intracranial hemorrhage. 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 Severe remote lacunar infarcts in the cerebellar hemispheres bilaterally. Marked chronic microvascular ischemic changes. Moderate to marked central cerebral and cerebellar volume loss. PAST SURGICAL HISTORY: As outlined. FAMILY HISTORY: Noncontributory. SOCIAL HISTORY: He does not smoke, drink, or abuse drugs. ALLERGIES: NONE TO PENICILLIN, SULFA, OR FOODS. MEDICATION: Per chart. REVIEW OF SYSTEMS: Noncontributory. PHYSICAL EXAMINATION: GENERAL APPEARANCE: The patient is obtunded, on a respirator. Has an ET tube, OG tube, and a Hillman catheter. VITAL SIGNS: Stable. SKIN: Without generalized rash. HEENT: As noted he is orally intubated. He has bilateral intra- ocular lens implants. NECK: Supple. Lymph nodes nonpalpable. CHEST: Decreased breath sounds at the bases. HEART: Without murmur or gallop. ABDOMEN: Soft, nontender, without organosplenomegaly or masses. EXTREMITIES: Without cyanosis, clubbing, or edema. RECTAL/GENITALIA: Deferred. NEUROLOGIC: No focal neurological abnormality. IMPRESSION AND PLAN: The patient has a white count of 17.1, BUN and creatinine 39 and 2.72. He is not doing well despite the fact that he is on vancomycin and cefepime and his cultures from the urine are growing out Escherichia coli that is sensitive to ceftriaxone to which we may switch. I will continue the vancomycin. I believe that we will repeat some blood cultures and I will dictate my findings to the hospitalist, Dr. Pizano, Dr. Kelly, and Dr. Harkins. Dictated By: Janak Santillan MD JD/vincent/ronn /Document#: [id number]
[2017-05-23] MEDS: AMITRIPTYLINE 10 MG TAB PO SCH (21:49)
[2017-05-24] VITALS (68 sets, daily range): BP systolic 63–133; BP diastolic 12–97; PULSE 63–94; RESP 5–25
[2017-05-24] MEDS ORDERED: NALOXONE (0.4 MG/ML) INJ IV ONE (00:30)
[2017-05-24] MEDS: INSULIN ASPART [NOVOLOG] 3 ML PEN SC SCH ×3 (01:27→08:21)
[2017-05-24] MEDS: LACTULOSE ENEMA 1,000 ML BTL PR SCH (04:00)
[2017-05-24] MEDS: HEPARIN 5,000 UNIT/0.5 ML VIAL SC SCH (05:13)
[2017-05-24] MEDS: SOD CHLORIDE 0.9% 1,000 ML IV SCH (05:15)
[2017-05-24] MEDS: PANTOPRAZOLE 40 MG INJ IV SCH (05:34)
[2017-05-24 05:40] LABS: ABNORMAL IP MESSAGE 1; BASOPHIL # 0.1 10^3/ul (0.0-0.1); BASOPHILS % 0.4 % (0.0-2.0); EOSINOPHILS # 0.3 10^3/ul (0.0-0.5); EOSINOPHILS % 2.3 % (0.0-7.0); HEMATOCRIT 28.1 % (42.0-52.0); HEMOGLOBIN 8.8 g/dl (14.0-18.0); MEAN CORPUSCULAR HGB CONC 31.3 g/dl (32.0-37.0); MEAN CORPUSCULAR VOLUME 95.9 fl (82.0-101.0); MEAN PLATELET VOLUME 11.9 fl (7.4-10.4); MONOCYTE # 1.6 10^3/ul (0.3-0.9); MONOCYTES % 13.2 % (0.0-11.0); NEUTROPHIL # 8.4 10^3/ul (1.6-7.5); NEUTROPHILS % 67.4 % (39.0-77.0); PLATELET COUNT 154 10^3/UL (140-415); POSITIVE DIFF @See below; RED BLOOD COUNT 2.93 10^6/ul (4.70-6.10); RED CELL DISTRIBUTION WIDTH 17.5 % (11.5-14.5); WHITE BLOOD COUNT 12.4 10^3/ul (4.8-10.8)
[2017-05-24 06:01] LABS: CALCIUM 7.7 mg/dl (8.4-10.2); CREATININE 2.18 mg/dl (0.61-1.24); PHOSPHORUS 3.1 mg/dl (2.5-4.9)
[2017-05-24] MEDS: TERAZOSIN 2 MG CAP PO SCH (08:16)
[2017-05-24] MEDS: ASPIRIN (EC) 81 MG TAB PO SCH (08:16)
[2017-05-24] MEDS: BACLOFEN 10 MG TAB PO SCH (08:16)
[2017-05-24] MEDS: INSULIN GLARGINE [LANtus] 3 ML PEN SC SCH (08:18)
[2017-05-24] MEDS ORDERED: FERROUS SULFATE 60 MG/ML 5ML CUP GTB SCH (09:00)
[2017-05-24] MEDS ORDERED: DOCUSATE SODIUM 10 MG/ML (10ML CUP) GTB SCH (09:00)
--- NOTE | 2017-05-24 10:23 | PN ---
DATE: 05/24/2017 SUBJECTIVE DATA: The patient remains critically ill on ventilatory support, on presser support. The patient's urinary output has been adequate. No other events noted. OBJECTIVE DATA: VITAL SIGNS: Blood pressure 129/59, respirations 19, pulse 93, temperature 98.6. Intake and output: Patient 4 L in and 1.3 L out. HEENT: Head is normocephalic. NECK: Supple. HEART: Regular rate. LUNGS: Diminished breath sounds at the bases. ABDOMEN: Soft, nontender to palpation. No rebound or guarding. EXTREMITIES: Negative for clubbing, cyanosis. Trace edema. DERMATOLOGIC: No rashes. MUSCULOSKELETAL: No joint effusion. NEUROLOGIC: Unchanged on exam. The patient's medications have been reviewed. IMAGINE STUDIES: MRI shows no acute infarct or intracranial hemorrhage. LABORATORY AND DIAGNOSTIC DATA: Shows sodium 145, potassium 4.0, chloride 115, bicarb 17. BUN 33, creatinine 2.18. White count 12.4, hemoglobin 8.8, hematocrit of 28.1; platelet count is 154. ASSESSMENT AND PLAN: 1. Nonoliguric acute kidney injury on top of chronic kidney disease stage 3B/4 with previous baseline creatinine of 2.3 mg/dL. Etiology of acute kidney injury secondary to acute tubular necrosis due to sepsis, hemodynamic shock. The patient's renal function has improved in the last 24 hours. At this point continue current treatment plan. Supportive care. Renally dose all medications. 2. Chronic kidney disease secondary to diabetes, hypertension. The patient is currently in acute kidney injury as stated above. Continue medical management. 3. Hyponatremia, improving. Continue current free water flushes 400 mL q.4 hours. 4. Mineral bone disorder. Monitor calcium and phosphorus levels. 5. Anemia. Monitor hemoglobin and hematocrit levels. 6. Metabolic acidosis secondary to acute kidney injury. Continue to monitor. 7. Septic shock secondary to urinary tract infection. Continue current antibiotic regimen. Continue pressors and IV fluids. 8. Ventilatory-dependent respiratory failure. Vent settings reviewed. Arterial blood gases reviewed. Follow up with Pulmonary. 9. Acute encephalopathy. Etiology is toxic metabolic. MRI has been reviewed. 10. Diabetes. Continue Accu-Cheks and sliding scale. 11. History of hypertension. The patient is currently in shock. Continue to monitor. 12. Benign prostatic hypertrophy. Continue medical management. Dictated By: Jl Pizano DO /vincent/krystyna Lua#: [id number]/Document#: [id number]
--- NOTE | 2017-05-24 10:51 | CONS ---
Date/Time of Note Date/Time of Note DATE: 05/24/17 TIME: 10:49 Consult Date/Type/Reason Admit Date/Time May 20, 2017 at 02:37 Initial Consult Date 05/21/17 Type of Consultation: Neurology Reason for Consultation encephalopathy Ordering Provider: FELIX MOISE Subjective given ativan for MRI yesterday off sedation, unresponsive Objective Vital Signs Date Time Temp Pulse Resp B/P Pulse Ox O2 Delivery O2 Flow Rate FiO2 05/24/17 09:00 40 05/24/17 08:00 79 98/65 100 05/24/17 07:45 99.7 05/24/17 07:00 23 05/23/17 20:00 Mechanical Ventilator 05/21/17 05:00 4.0 Intake and Output 05/23/17 05/23/17 05/24/17 15:00 23:00 07:00 Intake Total 1277.17 ml 1437.62 ml 1387.5 ml Output Total 395 ml 500 ml 450 ml Balance 882.17 ml 937.62 ml 937.5 ml Exam CN: pupils sluggish, corneals intact, gag present Motor: absent withdrawal to noxious limited exam patient is unresponsive to verbal commands unable to open eyes to sternal rub Results/Medications Result Diagram: 05/24/17 0455 05/24/17 0455 Results 24 hrs Laboratory Tests Test 05/23/17 13:36 05/23/17 18:35 05/23/17 21:21 05/24/17 01:24 Bedside Glucose 327 H 309 H 292 H 277 H Test 05/24/17 04:55 05/24/17 05:07 05/24/17 08:17 White Blood Count 12.4 #H Red Blood Count 2.93 L Hemoglobin 8.8 L Hematocrit 28.1 L Mean Corpuscular Volume 95.9 Mean Corpuscular Hemoglobin 30.0 Mean Corpuscular Hemoglobin Concent 31.3 L Red Cell Distribution Width 17.5 H Platelet Count 154 # Mean Platelet Volume 11.9 H Neutrophils % 67.4 Lymphocytes % 16.0 Monocytes % 13.2 H Eosinophils % 2.3 Basophils % 0.4 Nucleated Red Blood Cells % 0.0 Neutrophils # 8.4 H Lymphocytes # 2.0 Monocytes # 1.6 H Eosinophils # 0.3 Basophils # 0.1 Nucleated Red Blood Cells # 0.0 Sodium Level 145 H Potassium Level 4.0 Chloride Level 115 H Carbon Dioxide Level 17 L Anion Gap 17 H Blood Urea Nitrogen 33 H Creatinine 2.18 H Glucose Level 278 H Calcium Level 7.7 L Phosphorus Level 3.1 Magnesium Level 2.0 Bedside Glucose 257 H 304 H Medications Current Medications Sodium Chloride (NS) 1,000 ml @ 75 mls/hr [id number] IV Last administered on 05:15; Admin Dose 75 MLS/HR; Start 05/20/17 at 04:36 Ondansetron HCl (Zofran Inj) 4 mg Q6H PRN IV NAUSEA AND/OR VOMITING; Start at 05:00 Acetaminophen (Tylenol Supp) 650 mg Q6H PRN [place] PAIN LEVEL 1-3 OR FEVER Last administered on 05/20/17 07:10; Admin Dose 650 MG; Start 05/20/17 at 05:00 Pantoprazole (Protonix Iv) 40 mg DAILY@06 IV Last administered on 05/24/17 05: 34; Admin Dose 40 MG; Start 05/20/17 at 06:00 Heparin Sodium (Porcine) (Heparin (5000 Units/0.5 ml)) 5,000 unit Q8 SC Last administered on 05/24/17 05:13; Admin Dose 5,000 UNIT; Start 05/20/17 at 06:00 Hydralazine HCl (Apresoline) 10 mg Q6H PRN IV ELEVATED BLOOD PRESSURE Last administered on 05/20/17 18:01; Admin Dose 10 MG; Start 05/20/17 at 08:30 Miscellaneous Information 1 ea NOTE XX ; Start 05/20/17 at 09:30 Glucose (Glutose) 15 gm Q15M PRN PO DECREASED GLUCOSE; Start 05/20/17 at 09:30 Glucose (Glutose) 22.5 gm Q15M PRN PO DECREASED GLUCOSE; Start 05/20/17 at 09: 30 Dextrose (D50w Syringe) 25 ml Q15M PRN IV DECREASED GLUCOSE; Start 05/20/17 at 09:30 Dextrose (D50w Syringe) 50 ml Q15M PRN IV DECREASED GLUCOSE; Start 05/20/17 at 09:30 Glucagon (Glucagen) 1 mg Q15M PRN IM DECREASED GLUCOSE; Start 05/20/17 at 09:30 Glucose (Glutose) 15 gm Q15M PRN BUCCAL DECREASED GLUCOSE; Start 05/20/17 at 09 :30 Acetaminophen (Tylenol Tab) 325 mg Q4H PRN PO pain; Start 05/20/17 at 19:30 Aspirin (Halfprin) 81 mg DAILY PO Last administered on 05/24/17 08:16; Admin Dose 81 MG; Start 05/21/17 at 09:00 Baclofen (Lioresal) 10 mg TID PO Last administered on 05/24/17 08:16; Admin Dose 10 MG; Start 05/20/17 at 21:00 Carvedilol (Coreg) 3.125 mg BID PO Last administered on 05/23/17 09:46; Admin Dose 3.125 MG; Start 05/20/17 at 21:00 Colchicine (Colchicine) 0.6 mg TID PO ; Start 05/20/17 at 21:00; Status UNV Furosemide (Lasix) 40 mg DAILY PO ; Start 05/21/17 at 09:00; Status Future Hold Hydroxyzine HCl (Atarax) 25 mg Q6H PRN PO agitation; Start 05/20/17 at 19:30 Metoclopramide HCl (Reglan) 5 mg Q8H PRN PO nausea; Start 05/20/17 at 19:30 Terazosin HCl (Hytrin) 2 mg DAILY PO Last administered on 05/23/17 09:44; Admin Dose 2 MG; Start 05/21/17 at 09:00 Amitriptyline HCl (Elavil) 10 mg QHS PO Last administered on 05/23/17 21:49; Admin Dose 10 MG; Start 05/20/17 at 21:00 Lactulose 100 ml 100 ml Q8H [place] Last administered on 05/23/17 21:36; Admin Dose 100 ML; Start 05/21/17 at 12:00 Propofol (Diprivan) 100 ml @ 3.3 mls/hr Q12H IV Last administered on 05/23/17 12:19; Admin Dose 3.3 MLS/HR; Start 05/21/17 at 09:30 Insulin Glargine (Lantus) 17 unit DAILY@08 SC Last administered on 05/24/17 08: 18; Admin Dose 17 UNIT; Start 05/22/17 at 08:00 Insulin Aspart NOVOLOG *MILD* ALGORI... Q4 SC Last administered on 05/24/17 08: 21; Admin Dose 5 UNIT; Start 05/21/17 at 13:00 Cefepime HCl 50 ml @ 100 mls/hr Q24H IVPB Last administered on 05/23/17 12:43 ; Admin Dose 100 MLS/HR; Start 05/21/17 at 12:00 Vancomycin HCl/ Sodium Chloride (Vancocin/NS) 250 ml @ 83.333 mls/ hr Q48H IVPB Last administered on 05/23/17 13:48; Admin Dose 83.333 MLS/HR; Start at 13:00 Ibuprofen 600 mg 600 mg TID PO Last administered on 05/21/17 21:42; Admin Dose 600 MG; Start 05/21/17 at 21:00; Status Future Hold Norepinephrine 16 mg/Dextrose 500 ml @ 1.87 mls/hr TITRATE IV Last administered on 05/23/17 23:32; Admin Dose 37.5 MLS/HR; Start 05/22/17 at 07:00 Phenylephrine HCl/ Dextrose (Farhan-Syneph/D5W) 500 ml @ 75 mls/hr TITRATE IV ; Start 05/22/17 at 23:45 Ferrous Sulfate (Feosol Liquid Cup) 282 mg DAILY GTB Last administered on 10:01; Admin Dose 282 MG; Start 05/24/17 at 09:00 Docusate Sodium (Colace Liquid Cup) 100 mg DAILY GTB Last administered on 10:01; Admin Dose 100 MG; Start 05/24/17 at 09:00 Assessment/Plan Chief Complaint/Hosp Course 86 yo male admitted with delirium, urosepsis with respiratory failure requiring intubation with severe encephalopathy. 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
--- NOTE | 2017-05-24 11:50 | CONS ---
Date/Time of Note Date/Time of Note DATE: 05/24/17 TIME: 11:48 Assessment/Plan Assessment/Plan Additional Assessment/Plan Ventilator setting; AC of 14, tidal volume 500, PEEP of 5, 30% FiO2. Patient currently on Levophed at 14 mics per minute. Assessment and recommendations; 1. Patient admitted for severe sepsis remains hypotensive requiring pressor support. 2. Advanced dementia, patient remains completely unresponsive. 3. History of diabetes, hypertension, CHF. 4. Acute renal insufficiency. I did have a very lengthy discussion the patient's family at bedside the family wants him to be terminally extubated with provision of comfort care measures. I totally concur with the decision. Prognosis is extremely poor. 35 minutes of critical care time was spent evaluating the patient. Consultation Date/Type/Reason Admit Date/Time May 20, 2017 at 02:37 Initial Consult Date 05/21/17 Type of Consultation: Pulmonary/critical care Referring Provider: FELIX MOISE 24 HR Interval Summary Free Text/Dictation Patient condition is critical. Remains unresponsive. Remains ventilator dependent. Has remained hemodynamically unstable requiring Levophed for blood pressure maintenance. General exam; elderly male, orally intubated, unresponsive, currently in no distress. Exam/Review of Systems Vital Signs Vitals Vital Signs Date Time Temp Pulse Resp B/P Pulse Ox O2 Delivery O2 Flow Rate FiO2 05/24/17 10:30 71 110/59 99 05/24/17 10:00 22 05/24/17 09:00 40 05/24/17 07:45 99.7 05/23/17 20:00 Mechanical Ventilator 05/21/17 05:00 4.0 Intake and Output 05/23/17 05/23/17 05/24/17 15:00 23:00 07:00 Intake Total 1277.17 ml 1437.62 ml 1500.0 ml Output Total 395 ml 500 ml 550 ml Balance 882.17 ml 937.62 ml 950.0 ml Exam HEENT exam; supple neck, positive JVD. No lymphadenopathy. Midline trachea. No thyromegaly. Orally intubated. Patient has multiple carious teeth. Has bilateral intraocular lens implants. Chest exam; diminished but clear breath sound. S1-S2 audible, no murmurs. Regular rhythm. Abdomen exam; soft, protuberant. No organomegaly. Bowel sounds audible. Extremity exam; trace edema. [employer] exam; patient remains unresponsive. Results Result Diagram: 05/24/17 0455 05/24/17 0455 Results 24 hrs Laboratory Tests Test 05/23/17 13:36 05/23/17 18:35 05/23/17 21:21 05/24/17 01:24 Bedside Glucose 327 H 309 H 292 H 277 H Test 05/24/17 04:55 05/24/17 05:07 05/24/17 08:17 White Blood Count 12.4 #H Red Blood Count 2.93 L Hemoglobin 8.8 L Hematocrit 28.1 L Mean Corpuscular Volume 95.9 Mean Corpuscular Hemoglobin 30.0 Mean Corpuscular Hemoglobin Concent 31.3 L Red Cell Distribution Width 17.5 H Platelet Count 154 # Mean Platelet Volume 11.9 H Neutrophils % 67.4 Lymphocytes % 16.0 Monocytes % 13.2 H Eosinophils % 2.3 Basophils % 0.4 Nucleated Red Blood Cells % 0.0 Neutrophils # 8.4 H Lymphocytes # 2.0 Monocytes # 1.6 H Eosinophils # 0.3 Basophils # 0.1 Nucleated Red Blood Cells # 0.0 Sodium Level 145 H Potassium Level 4.0 Chloride Level 115 H Carbon Dioxide Level 17 L Anion Gap 17 H Blood Urea Nitrogen 33 H Creatinine 2.18 H Glucose Level 278 H Calcium Level 7.7 L Phosphorus Level 3.1 Magnesium Level 2.0 Bedside Glucose 257 H 304 H Medications Medications Current Medications Sodium Chloride (NS) 1,000 ml @ 75 mls/hr [id number] IV Last administered on 05:15; Admin Dose 75 MLS/HR; Start 05/20/17 at 04:36 Ondansetron HCl (Zofran Inj) 4 mg Q6H PRN IV NAUSEA AND/OR VOMITING; Start at 05:00 Acetaminophen (Tylenol Supp) 650 mg Q6H PRN [place] PAIN LEVEL 1-3 OR FEVER Last administered on 05/20/17 07:10; Admin Dose 650 MG; Start 05/20/17 at 05:00 Pantoprazole (Protonix Iv) 40 mg DAILY@06 IV Last administered on 05/24/17 05: 34; Admin Dose 40 MG; Start 05/20/17 at 06:00 Heparin Sodium (Porcine) (Heparin (5000 Units/0.5 ml)) 5,000 unit Q8 SC Last administered on 05/24/17 05:13; Admin Dose 5,000 UNIT; Start 05/20/17 at 06:00 Hydralazine HCl (Apresoline) 10 mg Q6H PRN IV ELEVATED BLOOD PRESSURE Last administered on 05/20/17 18:01; Admin Dose 10 MG; Start 05/20/17 at 08:30 Miscellaneous Information 1 ea NOTE XX ; Start 05/20/17 at 09:30 Glucose (Glutose) 15 gm Q15M PRN PO DECREASED GLUCOSE; Start 05/20/17 at 09:30 Glucose (Glutose) 22.5 gm Q15M PRN PO DECREASED GLUCOSE; Start 05/20/17 at 09: 30 Dextrose (D50w Syringe) 25 ml Q15M PRN IV DECREASED GLUCOSE; Start 05/20/17 at 09:30 Dextrose (D50w Syringe) 50 ml Q15M PRN IV DECREASED GLUCOSE; Start 05/20/17 at 09:30 Glucagon (Glucagen) 1 mg Q15M PRN IM DECREASED GLUCOSE; Start 05/20/17 at 09:30 Glucose (Glutose) 15 gm Q15M PRN BUCCAL DECREASED GLUCOSE; Start 05/20/17 at 09 :30 Acetaminophen (Tylenol Tab) 325 mg Q4H PRN PO pain; Start 05/20/17 at 19:30 Aspirin (Halfprin) 81 mg DAILY PO Last administered on 05/24/17 08:16; Admin Dose 81 MG; Start 05/21/17 at 09:00 Baclofen (Lioresal) 10 mg TID PO Last administered on 05/24/17 08:16; Admin Dose 10 MG; Start 05/20/17 at 21:00 Carvedilol (Coreg) 3.125 mg BID PO Last administered on 05/23/17 09:46; Admin Dose 3.125 MG; Start 05/20/17 at 21:00 Colchicine (Colchicine) 0.6 mg TID PO ; Start 05/20/17 at 21:00; Status UNV Furosemide (Lasix) 40 mg DAILY PO ; Start 05/21/17 at 09:00; Status Future Hold Hydroxyzine HCl (Atarax) 25 mg Q6H PRN PO agitation; Start 05/20/17 at 19:30 Metoclopramide HCl (Reglan) 5 mg Q8H PRN PO nausea; Start 05/20/17 at 19:30 Terazosin HCl (Hytrin) 2 mg DAILY PO Last administered on 05/23/17 09:44; Admin Dose 2 MG; Start 05/21/17 at 09:00 Amitriptyline HCl (Elavil) 10 mg QHS PO Last administered on 05/23/17 21:49; Admin Dose 10 MG; Start 05/20/17 at 21:00 Lactulose 100 ml 100 ml Q8H [place] Last administered on 05/23/17 21:36; Admin Dose 100 ML; Start 05/21/17 at 12:00 Propofol (Diprivan) 100 ml @ 3.3 mls/hr Q12H IV Last administered on 05/23/17 12:19; Admin Dose 3.3 MLS/HR; Start 05/21/17 at 09:30 Insulin Glargine (Lantus) 17 unit DAILY@08 SC Last administered on 05/24/17 08: 18; Admin Dose 17 UNIT; Start 05/22/17 at 08:00 Insulin Aspart NOVOLOG *MILD* ALGORI... Q4 SC Last administered on 05/24/17 08: 21; Admin Dose 5 UNIT; Start 05/21/17 at 13:00 Cefepime HCl 50 ml @ 100 mls/hr Q24H IVPB Last administered on 05/23/17 12:43 ; Admin Dose 100 MLS/HR; Start 05/21/17 at 12:00 Vancomycin HCl/ Sodium Chloride (Vancocin/NS) 250 ml @ 83.333 mls/ hr Q48H IVPB Last administered on 05/23/17 13:48; Admin Dose 83.333 MLS/HR; Start at 13:00 Ibuprofen 600 mg 600 mg TID PO Last administered on 05/21/17 21:42; Admin Dose 600 MG; Start 05/21/17 at 21:00; Status Future Hold Norepinephrine 16 mg/Dextrose 500 ml @ 1.87 mls/hr TITRATE IV Last administered on 05/23/17 23:32; Admin Dose 37.5 MLS/HR; Start 05/22/17 at 07:00 Phenylephrine HCl/ Dextrose (Farhan-Syneph/D5W) 500 ml @ 75 mls/hr TITRATE IV ; Start 05/22/17 at 23:45 Ferrous Sulfate (Feosol Liquid Cup) 282 mg DAILY GTB Last administered on 10:01; Admin Dose 282 MG; Start 05/24/17 at 09:00 Docusate Sodium (Colace Liquid Cup) 100 mg DAILY GTB Last administered on 10:01; Admin Dose 100 MG; Start 05/24/17 at 09:00 ART ESTEVEZ May 24, 2017 11:50
--- NOTE | 2017-05-24 12:25 | PN ---
Date/Time of Note Date/Time of Note DATE: 05/24/17 TIME: 12:24 Assessment/Plan VTE Prophylaxis VTE Prophylaxis Intervention: other Lines/Catheters IV Catheter Type (from Nrs): Peripheral IV Urinary Cath still in place: Yes Reason Cath still needed: skin wounds contaminated by urine Assessment/Plan Chief Complaint/Hosp Course 1) UTI/sepsis - intravenous antibiotics 2) respiratory failure - on ventilator - monitor, wean as able 3) diabetes - monitor blood sugar Problems: Subjective 24 Hr Interval Summary Free Text/Dictation Patient remain sedated, intubated. Spoke with family at bedside. Family opted for terminal extubation. Exam/Review of Systems Vital Signs Vitals Vital Signs Date Time Temp Pulse Resp B/P Pulse Ox O2 Delivery O2 Flow Rate FiO2 05/24/17 10:30 71 110/59 99 05/24/17 10:00 22 05/24/17 09:00 40 05/24/17 07:45 99.7 05/23/17 20:00 Mechanical Ventilator 05/21/17 05:00 4.0 Intake and Output 05/23/17 05/23/17 05/24/17 15:00 23:00 07:00 Intake Total 1277.17 ml 1437.62 ml 1500.0 ml Output Total 395 ml 500 ml 550 ml Balance 882.17 ml 937.62 ml 950.0 ml Exam Constitutional: well developed Head: atraumatic, normocephalic Neck: supple Respiratory: diminished breath sounds Cardiovascular: regular rate and rhythm Gastrointestinal: non-tender, soft Extremities: normal pulses Results Result Diagram: 05/24/17 0455 05/24/17 0455 Results 24 hrs Laboratory Tests Test 05/23/17 13:36 05/23/17 18:35 05/23/17 21:21 05/24/17 01:24 Bedside Glucose 327 H 309 H 292 H 277 H Test 05/24/17 04:55 05/24/17 05:07 05/24/17 08:17 White Blood Count 12.4 #H Red Blood Count 2.93 L Hemoglobin 8.8 L Hematocrit 28.1 L Mean Corpuscular Volume 95.9 Mean Corpuscular Hemoglobin 30.0 Mean Corpuscular Hemoglobin Concent 31.3 L Red Cell Distribution Width 17.5 H Platelet Count 154 # Mean Platelet Volume 11.9 H Neutrophils % 67.4 Lymphocytes % 16.0 Monocytes % 13.2 H Eosinophils % 2.3 Basophils % 0.4 Nucleated Red Blood Cells % 0.0 Neutrophils # 8.4 H Lymphocytes # 2.0 Monocytes # 1.6 H Eosinophils # 0.3 Basophils # 0.1 Nucleated Red Blood Cells # 0.0 Sodium Level 145 H Potassium Level 4.0 Chloride Level 115 H Carbon Dioxide Level 17 L Anion Gap 17 H Blood Urea Nitrogen 33 H Creatinine 2.18 H Glucose Level 278 H Calcium Level 7.7 L Phosphorus Level 3.1 Magnesium Level 2.0 Bedside Glucose 257 H 304 H Medications Medications Current Medications Sodium Chloride (NS) 1,000 ml @ 75 mls/hr [id number] IV Last administered on 05:15; Admin Dose 75 MLS/HR; Start 05/20/17 at 04:36 Ondansetron HCl (Zofran Inj) 4 mg Q6H PRN IV NAUSEA AND/OR VOMITING; Start at 05:00 Acetaminophen (Tylenol Supp) 650 mg Q6H PRN [place] PAIN LEVEL 1-3 OR FEVER Last administered on 05/20/17 07:10; Admin Dose 650 MG; Start 05/20/17 at 05:00 Pantoprazole (Protonix Iv) 40 mg DAILY@06 IV Last administered on 05/24/17 05: 34; Admin Dose 40 MG; Start 05/20/17 at 06:00 Heparin Sodium (Porcine) (Heparin (5000 Units/0.5 ml)) 5,000 unit Q8 SC Last administered on 05/24/17 05:13; Admin Dose 5,000 UNIT; Start 05/20/17 at 06:00 Hydralazine HCl (Apresoline) 10 mg Q6H PRN IV ELEVATED BLOOD PRESSURE Last administered on 05/20/17 18:01; Admin Dose 10 MG; Start 05/20/17 at 08:30 Miscellaneous Information 1 ea NOTE XX ; Start 05/20/17 at 09:30 Glucose (Glutose) 15 gm Q15M PRN PO DECREASED GLUCOSE; Start 05/20/17 at 09:30 Glucose (Glutose) 22.5 gm Q15M PRN PO DECREASED GLUCOSE; Start 05/20/17 at 09: 30 Dextrose (D50w Syringe) 25 ml Q15M PRN IV DECREASED GLUCOSE; Start 05/20/17 at 09:30 Dextrose (D50w Syringe) 50 ml Q15M PRN IV DECREASED GLUCOSE; Start 05/20/17 at 09:30 Glucagon (Glucagen) 1 mg Q15M PRN IM DECREASED GLUCOSE; Start 05/20/17 at 09:30 Glucose (Glutose) 15 gm Q15M PRN BUCCAL DECREASED GLUCOSE; Start 05/20/17 at 09 :30 Acetaminophen (Tylenol Tab) 325 mg Q4H PRN PO pain; Start 05/20/17 at 19:30 Aspirin (Halfprin) 81 mg DAILY PO Last administered on 05/24/17 08:16; Admin Dose 81 MG; Start 05/21/17 at 09:00 Baclofen (Lioresal) 10 mg TID PO Last administered on 05/24/17 08:16; Admin Dose 10 MG; Start 05/20/17 at 21:00 Carvedilol (Coreg) 3.125 mg BID PO Last administered on 05/23/17 09:46; Admin Dose 3.125 MG; Start 05/20/17 at 21:00 Colchicine (Colchicine) 0.6 mg TID PO ; Start 05/20/17 at 21:00; Status UNV Furosemide (Lasix) 40 mg DAILY PO ; Start 05/21/17 at 09:00; Status Future Hold Hydroxyzine HCl (Atarax) 25 mg Q6H PRN PO agitation; Start 05/20/17 at 19:30 Metoclopramide HCl (Reglan) 5 mg Q8H PRN PO nausea; Start 05/20/17 at 19:30 Terazosin HCl (Hytrin) 2 mg DAILY PO Last administered on 05/23/17 09:44; Admin Dose 2 MG; Start 05/21/17 at 09:00 Amitriptyline HCl (Elavil) 10 mg QHS PO Last administered on 05/23/17 21:49; Admin Dose 10 MG; Start 05/20/17 at 21:00 Lactulose 100 ml 100 ml Q8H [place] Last administered on 05/23/17 21:36; Admin Dose 100 ML; Start 05/21/17 at 12:00 Propofol (Diprivan) 100 ml @ 3.3 mls/hr Q12H IV Last administered on 05/23/17 12:19; Admin Dose 3.3 MLS/HR; Start 05/21/17 at 09:30 Insulin Glargine (Lantus) 17 unit DAILY@08 SC Last administered on 05/24/17 08: 18; Admin Dose 17 UNIT; Start 05/22/17 at 08:00 Insulin Aspart NOVOLOG *MILD* ALGORI... Q4 SC Last administered on 05/24/17 08: 21; Admin Dose 5 UNIT; Start 05/21/17 at 13:00 Cefepime HCl 50 ml @ 100 mls/hr Q24H IVPB Last administered on 05/23/17 12:43 ; Admin Dose 100 MLS/HR; Start 05/21/17 at 12:00 Vancomycin HCl/ Sodium Chloride (Vancocin/NS) 250 ml @ 83.333 mls/ hr Q48H IVPB Last administered on 05/23/17 13:48; Admin Dose 83.333 MLS/HR; Start at 13:00 Ibuprofen 600 mg 600 mg TID PO Last administered on 05/21/17 21:42; Admin Dose 600 MG; Start 05/21/17 at 21:00; Status Future Hold Norepinephrine 16 mg/Dextrose 500 ml @ 1.87 mls/hr TITRATE IV Last administered on 05/23/17 23:32; Admin Dose 37.5 MLS/HR; Start 05/22/17 at 07:00 Phenylephrine HCl/ Dextrose (Farhan-Syneph/D5W) 500 ml @ 75 mls/hr TITRATE IV ; Start 05/22/17 at 23:45 Ferrous Sulfate (Feosol Liquid Cup) 282 mg DAILY GTB Last administered on 10:01; Admin Dose 282 MG; Start 05/24/17 at 09:00 Docusate Sodium (Colace Liquid Cup) 100 mg DAILY GTB Last administered on 10:01; Admin Dose 100 MG; Start 05/24/17 at 09:00 ZAFAR ROQUE May 24, 2017 12:25
[2017-05-24] MEDS ORDERED: morphine (DRIP) 100 MG/100 ML 100 ML IV SCH (13:30)
== END 2017-05-24 22:25 | disposition expired | DRG 871 ==
LOC: E/R 00:23 → MS4 02:37 → ICU 05-21 08:26 → MS2 05-24 19:22
PROVIDERS: ADMIT Family Medicine; ATTEND Internal Medicine
PROC: 5A1945Z Respiratory Ventilation, 24-96 Consecutive Hours (ICD-10-PCS; principal; 2017-05-21)
PROC: 0BH17EZ Insertion of Endotracheal Airway into Trachea, Via Natural or Artificial Opening (ICD-10-PCS; 2017-05-21)
DX: A41.9 Sepsis, unspecified organism (principal); G93.49 Other encephalopathy; J96.90 Respiratory failure, unspecified, unspecified whether with hypoxia or hypercapnia; N17.0 Acute kidney failure with tubular necrosis; R65.21 Severe sepsis with septic shock; J18.9 Pneumonia, unspecified organism; N18.4 Chronic kidney disease, stage 4 (severe); E11.22 Type 2 diabetes mellitus with diabetic chronic kidney disease; N39.0 Urinary tract infection, site not specified; Z68.41 Body mass index [BMI] 40.0-44.9, adult; N13.9 Obstructive and reflux uropathy, unspecified; D64.9 Anemia, unspecified; I12.9 Hypertensive chronic kidney disease with stage 1 through stage 4 chronic kidney disease, or unspecified chronic kidney disease; E66.9 Obesity, unspecified; N40.1 Benign prostatic hyperplasia with lower urinary tract symptoms; R33.8 Other retention of urine; M10.9 Gout, unspecified; R29.707 NIHSS score 7; R41.0 Disorientation, unspecified; B96.20 Unspecified Escherichia coli [E. coli] as the cause of diseases classified elsewhere; B95.2 Enterococcus as the cause of diseases classified elsewhere
CPT/HCPCS: 31500; 36415; 36600; 70450; 70551; 71010; 74000; 76775; 80048; 80053; 80306; 80307; 81001; 81003; 82043; 82140; 82803; 82962; 83605; 83735; 84100; 84155; 84300; 84443; 84484; 84560; 85025; 85610; 85730; 87040; 87081; 87086; 93005; 94002; 94003; 94770; 96372; 96374; A4310; C9113; J0360; J0692; J1630; J1644; J1815; J2060; J2270; J2310; J3370; J7030; J7040; J7050; J7060; J7999